=== PATIENT | male | born 1995 | race African-American/Black ===

== ENCOUNTER 2017-07-13 14:16 | Emergency (ER) | payer SELFPAY ==
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
[2017-07-13] MEDS ORDERED: ONDANSETRON 4 MG/2 ML VIAL IVP ONE (14:30)
[2017-07-13 14:40] LABS: PLATELET COUNT, AUTOMATED 156 K/uL (150-450)
[2017-07-13 15:00] LABS: INR 1.03
[2017-07-13] MEDS ORDERED: LORA-1456 PO (16:34)
[2017-07-13] MEDS ORDERED: LORazepam 1 MG TAB PO ONE (16:40)
[2017-07-13] MEDS ORDERED: ONDANSETRON 4 MG/2 ML VIAL ONE (16:48)
--- NOTE | 2017-07-13 17:08 | RADIOLOGY IMAGING REPORT ---
FACILITY: [facility] PATIENT NAME: Austin Hoyt : 1995 MR: [id number] V: [id number] EXAM DATE: ORDERING PHYSICIAN: FERCHO STORM TECHNOLOGIST: Location: [facility] [place] Patient: Austin Hoyt : 1995 Visit/Account:[id number] Date of Sevice: 07/13/2017 EXAMINATION: Head CT without intravenous contrast HISTORY: Seizure. COMPARISON: None. TECHNIQUE: Contiguous axial images were obtained from the skull base to the vertex without intraven ous contrast. Sagittal and coronal reformatted images are also submitted. One of the following dose optimization techniques was utilized in the performance of this exam: Autom ated exposure control; adjustment of the mA and/or kV according to the patient's size; or use of an i terative reconstruction technique. Specific details can be referenced in the facility's radiology C T exam operational policy. FINDINGS: Brain and intracranial structures: Ventricles, sulci, and cisterns are normal in size. Blake-white ma tter differentiation is maintained. No midline shift, acute hemorrhage, acute infarct, or mass. Calvarium / scalp: Right parietal scalp hematoma. No acute fracture. Skull base / visualized face: Negative. Visualized sinuses / orbits: Leftward deviation of the nasal septum. IMPRESSION: Right parietal scalp hematoma. No acute intracranial abnormality. Report Dictated By: Nile Wright MD at 07/13/2017 3:04 PM Report E-Signed By: Nile Wright MD at 07/13/2017 3:10 PM WSN:[id number]
--- NOTE | 2017-07-13 17:09 | RADIOLOGY IMAGING REPORT ---
FACILITY: [facility] [place] PATIENT NAME: Austin Hoyt : 1995 MR: [id number] V: [id number] EXAM DATE: ORDERING PHYSICIAN: FERCHO STORM TECHNOLOGIST: Location: Patient: Austin Hoyt : 1995 Visit/Account:[id number] Date of Sevice: 07/13/2017 EXAMINATION: CT Cervical spine without intravenous contrast HISTORY: Seizure. COMPARISON: None. TECHNIQUE: Axial images were obtained from the skull base through the upper thoracic spine without I V contrast administration. Coronal and sagittal reformatted images were obtained from the axial [facility] e data. One of the following dose optimization techniques was utilized in the performance of this exam: Autom ated exposure control; adjustment of the mA and/or kV according to the patient's size; or use of an i terative reconstruction technique. Specific details can be referenced in the facility's radiology C T exam operational policy. FINDINGS: Alignment: Slight kyphotic curvature of the cervical spine. Cranio-cervical junction: Negative. Vertebral bodies: Vertebral body heights are maintained. No acute fracture. Posterior elements: No acute fracture. Hardware: None. Disc Spaces: Intervertebral disc heights are maintained. Soft tissues: Negative. Visualized upper chest: Negative. IMPRESSION: No acute fracture of the cervical spine. Report Dictated By: Nile Wright MD at 07/13/2017 3:20 PM Report E-Signed By: Nile Wright MD at 07/13/2017 3:25 PM WSN:[id number]
[2017-07-13 17:31] VITALS: BP 150/97
== END 2017-07-13 17:34 | disposition home or self-care (01) ==
LOC: EDUNIT# 14:16 → ER 14:32
DX: R56.9 Unspecified convulsions (principal); F10.230 Alcohol dependence with withdrawal, uncomplicated; S00.93XA Contusion of unspecified part of head, initial encounter
CPT/HCPCS: 70450; 72125; 80305; 80320; 85025; 85610; 85730; 96374; 99284; J2405; 82040; 82247; 82310; 82374; 82435; 82565; 82947; 84075; 84132; 84155; 84295; 84450; 84460; 84520

== ENCOUNTER 2017-07-13 18:15 | Emergency (ER) | payer SELFPAY ==
[~2017-07-13 18:15] MED LIST changes: -MULT-1379 PO; -NICO-219 BC
[2017-07-13] MEDS ORDERED: DIAZEPAM 10 MG TAB PO ONE (18:25)
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
[2017-07-13] MEDS ORDERED: ONDANSETRON 4 MG/2 ML VIAL IVP ONE (18:35)
[2017-07-13] MEDS ORDERED: LORazepam 2 MG/ML VIAL IVP ONE (18:50)
[2017-07-13 19:30] VITALS: BP 132/77
== END 2017-07-13 20:40 ==
LOC: ER 18:44
DX: R56.9 Unspecified convulsions (principal); F10.230 Alcohol dependence with withdrawal, uncomplicated; R61 Generalized hyperhidrosis
CPT/HCPCS: 80329; 83735; 84443; 96374; 96375; 99285; J2060; J2405

== ENCOUNTER 2017-07-13 20:27 | Inpatient (IN) | payer SELFPAY ==
[~2017-07-13] VITALS: Ht 180.3 cm; Wt 68.0 kg
[2017-07-13] MEDS ORDERED: MAG HYD/AL HYD/SIMETH 30ML UDC PO PRN (20:35)
[2017-07-13 20:48] VITALS: BP 144/88
[2017-07-13] MEDS ORDERED: NICOTINE CARTRIDGE 1 EA PO PRN (20:50)
[2017-07-13] MEDS ORDERED: NICOTINE INH SYSTEM 10 MG/INH INH PRN (20:50)
[2017-07-13] MEDS: LORazepam 1 MG TAB PO PRN ×2 (20:52→22:45)
[2017-07-13 22:30] VITALS: BP 142/70
[2017-07-14] VITALS (10 sets, daily range): BP systolic 126–160; BP diastolic 70–102
[2017-07-14] MEDS: LORazepam 1 MG TAB PO PRN ×8 (00:18→11:47)
[2017-07-14] MEDS: MULTIVITAMINS TAB PO SCH (08:07)
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
[2017-07-14] MEDS: NICOTINE POLACRILEX 4 MG LOZG PO PRN ×2 (10:55→13:28)
[2017-07-14] MEDS: DIAZEPAM 10 MG TAB PO PRN ×11 (12:07→21:36)
[2017-07-14] MEDS: NICOTINE 21 MG/24 HR PATCH TD SCH (14:24)
[2017-07-14 15:40] LABS: PLATELET COUNT, AUTOMATED 131 K/uL (150-450)
--- NOTE | 2017-07-14 15:55 | EKG ---
FACILITY: PATIENT NAME: LILI HARRINGTON : [id number] MR: [id number] V: [id number] EXAM DATE: ORDERING PHYSICIAN: ALBERT DOCKERY TECHNOLOGIST: ESPERANZA Chiang Reason : Blood Pressure : / mmHG Vent. Rate : 083 BPM Atrial Rate : 083 BPM P-R Int : 144 ms QRS Dur : 088 ms QT Int : 356 ms P-R-T Axes : -03 064 040 degrees QTc Int : 418 ms Normal sinus rhythm Moderate voltage criteria for LVH, may be normal variant Borderline ECG No previous ECGs available Confirmed by NASRA KOCH ([id number]) on 07/15/2017 6:27:26 AM Referred By: Confirmed By:NASRA KOCH
--- NOTE | 2017-07-14 16:32 | BHS Progress Note ---
[facility] - Subjective Progress Notes Subjective Mr. Hoyt has shown worsening symptoms of withdrawal throughout the day. We stopped lorazepam and began using diazepam in late morning as he began showing more signs of delirium including confusion, hallucinations and persistently elevated pulse and BP. By mid-afternoon, he had received 60 mgs of diazepam with CIWA scores trending upward. At 1500, his pulse was still 108, BP 132/88, respirations 20 and temp 99.2. I ordered additional labs and noted his Na has come up from 135 to 138. K remains 3.4. Mg level is normal at 1.8. Nursing reports worsening confusion and CIWA scores that last up to 38 at 1500. I spoke to Dr. Dykes by phone who recommended continuing with aggressive diazepam increasing the frequency to 20 mgs every hour while continuing close observation as well as getting an EKG and CBC to monitor platelets, hydrating with electrolyte-rich fluids, elevating the head of the bed and monitoring a pulse ox if the patient does go to sleep. Reviewed labs: EKG shows no signs of preexcitation or conduction abnormalities. Platelets are somewhat lower at 131, however, I suspect this may be due to improved hydration as other functions are likewise changed from his ER visit such as albumen and total protein. [facility] Assessment and Plan [id number] Encounter Date: July 14, 2017 Mfvj-[id number] Encounter Time: 13:30 [facility] Plan: Admin/Titrate Meds Multpiple Antipsychotics Used: No Problems: (1) Alcohol withdrawal delirium, acute, hyperactive Status: Acute (2) Seizure due to alcohol withdrawal Status: Acute (3) Metabolic acidosis Status: Resolved (4) Alcohol dependence in controlled environment Condition Worsening delirium. Will increase diazepam and monitor closely. Will consider consulting medicine and/or possibly repeating brain CT if conditions worsen. See orders ALBERT DOCKERY DO July 14, 2017 16:15
[2017-07-14] MEDS: LOPERAMIDE HCL 2 MG CAP PO PRN ×2 (20:24→20:45)
[2017-07-14] MEDS ORDERED: DIAZEPAM 10 MG TAB PO ONE ×2 (20:30→20:55)
--- NOTE | 2017-07-14 22:39 | Hospitalist Consultation ---
History of Present Illness Requesting Physician Dr. Dykes Reason for Consult Alcohol withdrawal History of Present Illness This patient was admitted to [facility] [address] for alcohol withdrawal and seizures. He has not responded to oral diazepam and staff has found pills stashed in his room. History Problems: (1) Seizure due to alcohol withdrawal Status: Acute Home Meds Active Scripts Lorazepam (ATIVAN) 1 Mg Tablet, 1 MG PO Q4-6H Y for prn, #12 0 Refills Take as needed for withdrawals. Prov:FERCHO STORM Sean NEWS CLERK-BC 07/13/17 Allergies: Coded Allergies: No Known Drug Allergies (Unverified , 07/13/17) Hx Smoking: Yes Smoking Status: Heavy Tobacco Smoker Exposure to Second Hand Smoke?: No Hx Alcohol Use: Yes Alcohol Use: Currently Alcohol Used: Beer, Liquor Alcohol Withdrawl Symptoms: Tremors, Heart Racing, Sweating, Agitation, Headache Hx Substance Use Disorder: Yes Social Drug Use: Currently Social Drugs: Cocaine History of IV Drug Use: No Review of Systems All Systems Reviewed/Normal: Yes Exam Vital Signs Vital Signs Date Time Temp Pulse Resp B/P (MAP) Pulse Ox O2 Delivery O2 Flow Rate FiO2 07/14/17 19:20 97.8 86 20 142/92 (109) 94 Room Air 07/14/17 00:11 1.0 Neuro: No Gross deficits Cardiovascular: Regular Rate and Rhythm Respiratory: Clear to Auscultation Extremities: No Edema Integumentary: No Cyanosis Medical Decision Making Data Points Result Diagram: 07/14/17 1450 07/14/17 1450 Assessment and Plan Problems: (1) Alcohol withdrawal delirium, acute, hyperactive Status: Acute Assessment & Plan: We have converted him to IV lorazepam for his CIWA protocol. Thiamine has also been added. Venous Thromboembolism Antithrombotics Is Pt On Any Antithrombotics?: No NASRA KOCH DO July 14, 2017 22:39
[2017-07-14] MEDS: LORazepam 2 MG/ML VIAL IVP PRN (23:00)
[2017-07-15] MEDS: LORazepam 2 MG/ML VIAL IVP PRN ×11 (00:10→22:22)
[2017-07-15 00:13] VITALS: BP 138/84
[2017-07-15] MEDS: LOPERAMIDE HCL 2 MG CAP PO PRN (00:56)
[2017-07-15 04:00] VITALS: BP 128/90
[2017-07-15] MEDS: LORazepam 1 MG TAB PO PRN (04:05)
[2017-07-15 07:53] LABS: PLATELET COUNT, AUTOMATED 142 K/uL (150-450)
[2017-07-15] MEDS: THIAMINE HCL 100 MG TAB PO SCH (08:38)
[2017-07-15] MEDS: MULTIVITAMINS TAB PO SCH (08:38)
[2017-07-15] MEDS: NICOTINE 21 MG/24 HR PATCH TD SCH (08:38)
[2017-07-15] MEDS ORDERED: PATCH REMOVAL 1 EA TP SCH (09:00)
--- NOTE | 2017-07-15 13:24 | BHS Progress Note ---
[facility] - Subjective Progress Notes Subjective Patient interviewed in room, requiring 1:1 observation due to delirium related to alcohol withdrawal. Oriented to person only, disoriented to date, place and situation. Ambulates with fairly steady gait, fall precautions maintained Hospitalist consultation 07/15/15 due to poor response from oral Diazepam after total of 190 mg Diazepam and 19 mg Lorazepam po. One dose found smeared otherwise doses witnessed taking. CIWA scores remained >25 with increased agitation and confusion. IV placed with initiation of IV Lorazepam, CIWA scores lowered from 29 to 13 throughout night, patient slept intermittently with 1:1 observation by staff, HOB elevated and seizure precautions in place, continuous pulse oximetry. CIWA scores increased to 26 am 07/15/17, initially refusing IV Lorazepam although agreeable with after seizure risk reviewed. EKG 07/14/17 NSR, CT head without contrast 07/14/17 - right parietal scalp hematoma, no intracranial abnormality. 07/15/17 labs improving AST 156, ALT 117, Platelets 142, MCV 96.1 Will continue IV Lorazepam per protocol for alcohol withdrawal, close monitoring w/ 1:1 staff for safety, maintain seizure precautions. Suicidal Ideation: None Homicidal Ideation: None [facility] - Objective Physical Exam Vital Signs Vital Signs Date Time Temp Pulse Resp B/P (MAP) Pulse Ox O2 Delivery O2 Flow Rate FiO2 07/15/17 04:00 64 21 100 Room Air 07/15/17 04:00 97.9 128/90 (103) 07/14/17 00:11 1.0 Allergies Coded Allergies No Known Drug Allergies (Unverified07/13/17) Muscle Strength and Tone: Other (maintaining fall precautions, gait mostly steady 1:1 staff) Gait and Station: Other [facility] Medications Reviewed: Side Effects, Benefits of Medication, Risks Allergies Reviewed: Yes Mental Status Exam General Appearance: Well Groomed, Cooperative, Polite, Good Interaction, Psychomotor Agitation Speech: Spontaneous, Normal Rate, Other (Mostly clear but often soft and difficult for me to understand. Several times I had to ask the patient to repeat or clarify his answers.) Mood: Euthymic Affect: Calm, Flat Thought Process: Other (Largely coherent and goal-directed but with subtle deficits. Seems confused at times. Some answers to questions are hard to follow.) Thought Content: No Suicidal Ideation, No Homicidal Ideation, Auditory Halllucinations (responding to stimuli), Visual Hallucinations Sensorium: Other (Patient is observed by nursing to be responding to audio/ visual hallucinations) Cognition: Alert & Oriented-Person, No Alert & Oriented-Place, No Alert & Oriented-Time, No Tngad-Zqmzfsui-Khzuorkwp, Other (disoriented to date, place, situation) Memory: Immediate, Recent (Recalled meeting me about an hour earlier and the reasons for his admission), Remote (Able to recall significant past personal information) Intelligence: Average Insight Judgment: Fair (understands that he has a problem with alcohol and needs to "get back on track" and quit drinking) Result Diagram: 07/15/17 0746 07/15/17 0746 Lab Laboratory Tests Test 07/14/17 14:50 07/15/17 07:46 White Blood Count 8.0 k/uL 5.5 k/uL Red Blood Count 4.50 M/uL 4.63 M/uL Hemoglobin 14.5 g/dL 15.3 g/dL Hematocrit 42.9 % 44.5 % Mean Corpuscular Volume 95.3 fL 96.1 fL Mean Corpuscular Hemoglobin 32.3 pg 33.0 pg Mean Corpuscular Hemoglobin Concent 33.9 g/dL 34.3 g/dL Red Cell Distribution Width 13.4 % 13.7 % Platelet Count 131 K/uL 142 K/uL Mean Platelet Volume 9.2 fL 8.4 fL Neutrophils (%) (Auto) 74.5 % 65.9 % Lymphocytes (%) (Auto) 11.3 % 19.5 % Monocytes (%) (Auto) 13.7 % 13.0 % Eosinophils (%) (Auto) 0.2 % 1.0 % Basophils (%) (Auto) 0.3 % 0.6 % Nucleated RBC Relative Count (auto) 0.0 /100WBC 0.1 /100WBC Neutrophils # (Auto) 5.9 K/uL 3.6 K/uL Lymphocytes # (Auto) 0.9 K/uL 1.1 K/uL Monocytes # (Auto) 1.1 K/uL 0.7 K/uL Eosinophils # (Auto) 0.0 K/uL 0.1 K/uL Basophils # (Auto) 0.0 K/uL 0.0 K/uL Nucleated RBC Absolute Count (auto) 0.00 K/uL 0.00 K/uL Sodium Level 138 mmol/L 141 mmol/L Potassium Level 3.4 mmol/L 3.5 mmol/L Chloride Level 95 mmol/L 100 mmol/L Carbon Dioxide Level 27 mmol/L 25 mmol/L Blood Urea Nitrogen 8 mg/dl 4 mg/dl Creatinine 1.00 mg/dl 0.90 mg/dl Glomerular Filtration Rate Calc > 60.0 > 60.0 Random Glucose 104 mg/dl 101 mg/dl Calcium Level 10.4 mg/dl 9.9 mg/dl Magnesium Level 1.8 mg/dl Total Bilirubin 1.0 mg/dl 1.2 mg/dl Aspartate Amino Transf (AST/SGOT) 149 U/L 156 U/L Alanine Aminotransferase (ALT/SGPT) 109 U/L 117 U/L Alkaline Phosphatase 89 U/L 68 U/L Total Protein 8.1 gm/dl 7.7 gm/dl Albumin 4.8 g/dl 4.6 g/dl Current Medications Medications (Trade) Dose Ordered Sig/Cathy Route PRN Reason Start Time Stop Time Status Last Admin Dose Admin Lorazepam (Ativan(*) 1 Mg Tab (Or Equiv)) Ativan 1-2mg PO ever... Q1H PRN PO FOLLOW [facility]I/MARTHA PROTOCOL 07/13/17 20:35 07/14/17 12:02 DC 07/14/17 11:47 Al Hydrox/Mg Hydrox/Simethicone (Maalox(*) 30 ml Udcup (Or Equiv)) 30 ml Q4H PRN PO DYSPEPSIA 07/13/17 20:35 08/12/17 20:34 Multivitamins (Thera-M Enhanced Tab (Or Equiv)) 1 each QDAY PO 07/14/17 09:00 08/13/17 08:59 07/15/17 08:38 Miscellaneous Information (Nicotrol Cartridge) 1 each PRN PRN PO NICOTINE REPLACEMENT 07/13/17 20:50 07/14/17 10:36 DC Nicotine (Nicotrol Inhaler 10 Mg/Inh (Or Equiv)) 10 mg Q2H PRN INH NICOTINE REPLACEMENT 07/13/17 20:50 07/14/17 10:36 DC Nicotine Polacrilex (Commit 4 Mg Lozg (Or Equiv)) 4 mg Q1-2H PRN PO NICOTINE REPLACEMENT 07/14/17 10:35 07/14/17 13:56 DC 07/14/17 13:28 Diazepam (Valium(*) 10 Mg Tab (Or Equiv)) 20 mg PRN PRN PO FOLLOW [facility] PROTOCOL 07/14/17 12:00 07/14/17 22:27 DC 07/14/17 21:36 Nicotine (Nicoderm Cq(*) 21 Mg/24 Hr (Or Equiv)) 21 mg QDAY TD 07/14/17 13:55 08/13/17 13:54 07/15/17 08:38 Loperamide HCl (Imodium 2 Mg Cap (Or Equiv)) 2 mg PRN PRN PO DIARRHEA 07/14/17 20:15 08/13/17 20:14 07/15/17 00:56 Diazepam (Valium(*) 10 Mg Tab (Or Equiv)) 10 mg ONCE ONCE PO 07/14/17 20:30 07/14/17 22:27 DC 07/14/17 20:45 Diazepam (Valium(*) 10 Mg Tab (Or Equiv)) 10 mg ONCE ONCE PO 07/14/17 20:55 07/14/17 20:56 UNV Lorazepam (Ativan(*) 1 Mg Tab (Or Equiv)) 2 mg Q1H PRN PO FOLLOW [facility] PROTOCOL 07/14/17 22:25 07/28/17 22:24 07/15/17 04:05 Lorazepam (Ativan(*) 2 Mg/ ml Vial (Or Equiv)) 2 mg Q1H PRN IVP FOLLOW [facility] PROTOCOL 07/14/17 22:25 07/28/17 22:24 07/15/17 12:05 Thiamine HCl (Vitamin B-1(*) 100 Mg Tab (Or Equiv)) 100 mg QDAY PO 07/15/17 09:00 08/14/17 08:59 07/15/17 08:38 Additional Findings/Notes: Laboratory Tests Test 07/14/17 14:50 07/15/17 07:46 White Blood Count 8.0 k/uL 5.5 k/uL Red Blood Count 4.50 M/uL 4.63 M/uL Hemoglobin 14.5 g/dL 15.3 g/dL Hematocrit 42.9 % 44.5 % Mean Corpuscular Volume 95.3 fL 96.1 fL Mean Corpuscular Hemoglobin 32.3 pg 33.0 pg Mean Corpuscular Hemoglobin Concent 33.9 g/dL 34.3 g/dL Red Cell Distribution Width 13.4 % 13.7 % Platelet Count 131 K/uL 142 K/uL Mean Platelet Volume 9.2 fL 8.4 fL Neutrophils (%) (Auto) 74.5 % 65.9 % Lymphocytes (%) (Auto) 11.3 % 19.5 % Monocytes (%) (Auto) 13.7 % 13.0 % Eosinophils (%) (Auto) 0.2 % 1.0 % Basophils (%) (Auto) 0.3 % 0.6 % Nucleated RBC Relative Count (auto) 0.0 /100WBC 0.1 /100WBC Neutrophils # (Auto) 5.9 K/uL 3.6 K/uL Lymphocytes # (Auto) 0.9 K/uL 1.1 K/uL Monocytes # (Auto) 1.1 K/uL 0.7 K/uL Eosinophils # (Auto) 0.0 K/uL 0.1 K/uL Basophils # (Auto) 0.0 K/uL 0.0 K/uL Nucleated RBC Absolute Count (auto) 0.00 K/uL 0.00 K/uL Sodium Level 138 mmol/L 141 mmol/L Potassium Level 3.4 mmol/L 3.5 mmol/L Chloride Level 95 mmol/L 100 mmol/L Carbon Dioxide Level 27 mmol/L 25 mmol/L Blood Urea Nitrogen 8 mg/dl 4 mg/dl Creatinine 1.00 mg/dl 0.90 mg/dl Glomerular Filtration Rate Calc > 60.0 > 60.0 Random Glucose 104 mg/dl 101 mg/dl Calcium Level 10.4 mg/dl 9.9 mg/dl Magnesium Level 1.8 mg/dl Total Bilirubin 1.0 mg/dl 1.2 mg/dl Aspartate Amino Transf (AST/SGOT) 149 U/L 156 U/L Alanine Aminotransferase (ALT/SGPT) 109 U/L 117 U/L Alkaline Phosphatase 89 U/L 68 U/L Total Protein 8.1 gm/dl 7.7 gm/dl Albumin 4.8 g/dl 4.6 g/dl Current Medications Medications (Trade) Dose Ordered Sig/Cathy Route PRN Reason Start Time Stop Time Status Last Admin Dose Admin Lorazepam (Ativan(*) 1 Mg Tab (Or Equiv)) Ativan 1-2mg PO ever... Q1H PRN PO FOLLOW [facility] PROTOCOL 07/13/17 20:35 07/14/17 12:02 DC 07/14/17 11:47 Al Hydrox/Mg Hydrox/Simethicone (Maalox(*) 30 ml Udcup (Or Equiv)) 30 ml Q4H PRN PO DYSPEPSIA 07/13/17 20:35 08/12/17 20:34 Multivitamins (Thera-M Enhanced Tab (Or Equiv)) 1 each QDAY PO 07/14/17 09:00 08/13/17 08:59 07/15/17 08:38 Miscellaneous Information (Nicotrol Cartridge) 1 each PRN PRN PO NICOTINE REPLACEMENT 07/13/17 20:50 07/14/17 10:36 DC Nicotine (Nicotrol Inhaler 10 Mg/Inh (Or Equiv)) 10 mg Q2H PRN INH NICOTINE REPLACEMENT 07/13/17 20:50 07/14/17 10:36 DC Nicotine Polacrilex (Commit 4 Mg Lozg (Or Equiv)) 4 mg Q1-2H PRN PO NICOTINE REPLACEMENT 07/14/17 10:35 07/14/17 13:56 DC 07/14/17 13:28 Diazepam (Valium(*) 10 Mg Tab (Or Equiv)) 20 mg PRN PRN PO FOLLOW CIWA PROTOCOL 07/14/17 12:00 07/14/17 22:27 DC 07/14/17 21:36 Nicotine (Nicoderm Cq(*) 21 Mg/24 Hr (Or Equiv)) 21 mg QDAY TD 07/14/17 13:55 08/13/17 13:54 07/15/17 08:38 Loperamide HCl (Imodium 2 Mg Cap (Or Equiv)) 2 mg PRN PRN PO DIARRHEA 07/14/17 20:15 08/13/17 20:14 07/15/17 00:56 Diazepam (Valium(*) 10 Mg Tab (Or Equiv)) 10 mg ONCE ONCE PO 07/14/17 20:30 07/14/17 22:27 DC 07/14/17 20:45 Diazepam (Valium(*) 10 Mg Tab (Or Equiv)) 10 mg ONCE ONCE PO 07/14/17 20:55 07/14/17 20:56 UNV Lorazepam (Ativan(*) 1 Mg Tab (Or Equiv)) 2 mg Q1H PRN PO FOLLOW [facility] PROTOCOL 07/14/17 22:25 07/28/17 22:24 07/15/17 04:05 Lorazepam (Ativan(*) 2 Mg/ ml Vial (Or Equiv)) 2 mg Q1H PRN IVP FOLLOW [facility] PROTOCOL 07/14/17 22:25 07/28/17 22:24 07/15/17 12:05 Thiamine HCl (Vitamin B-1(*) 100 Mg Tab (Or Equiv)) 100 mg QDAY PO 07/15/17 09:00 08/14/17 08:59 07/15/17 08:38 [facility] Assessment and Plan Lfej-[id number] Encounter Date: July 15, 2017 [id number] Encounter Time: 08:45 [facility] Plan: Admit to Unit, Necessary Precautions, Individual/Group Therapy, Admin /Titrate Meds, Educate Patient Multpiple Antipsychotics Used: No Problems: (1) Alcohol dependence in controlled environment Status: Chronic (2) Alcohol withdrawal delirium, acute, hyperactive Status: Acute (3) Seizure due to alcohol withdrawal Status: Resolved Condition Continue IV Lorazepam per protocol Monitor VS, labs, close observation with 1:1 staff LAKSHMI MACK NP July 15, 2017 13:24
[2017-07-15 16:10] VITALS: BP 130/96
[2017-07-15] MEDS ORDERED: LORazepam 1 MG TAB PO ONE (17:10)
[2017-07-15] MEDS ORDERED: clonazePAM 0.5 MG ODT TABDP PO ONE ×2 (20:00→22:00)
[2017-07-15 20:05] VITALS: BP 130/82
[2017-07-15] MEDS ORDERED: NICOTINE CARTRIDGE 1 EA PO ONE (20:07)
[2017-07-15] MEDS ORDERED: NICOTINE INH SYSTEM 10 MG/INH INH ONE (20:07)
[2017-07-15 21:08] VITALS: BP 120/78
[2017-07-15] MEDS ORDERED: clonazePAM 0.5 MG ODT TABDP PO SCH (21:25)
[2017-07-15 23:58] VITALS: BP 128/88
[2017-07-16] MEDS ORDERED: OLANZapine ZYDIS ODT 5MG TABDP ONE ×2 (00:04→04:32)
[2017-07-16] MEDS ORDERED: OLANZapine ZYDIS ODT 5MG TABDP PO ONE (00:10)
[2017-07-16 02:15] VITALS: BP 134/96
[2017-07-16] MEDS: LORazepam 2 MG/ML VIAL IVP PRN (02:23)
[2017-07-16 03:48] VITALS: BP 134/88
[2017-07-16] MEDS ORDERED: clonazePAM 0.5 MG ODT TABDP PO ONE ×3 (04:10→15:15)
[2017-07-16] MEDS ORDERED: diphenhydrAMINE 25 MG CAP ONE (04:32)
[2017-07-16] MEDS ORDERED: NICOTINE INH SYSTEM 10 MG/INH INH ONE (04:49)
[2017-07-16] MEDS ORDERED: NICOTINE CARTRIDGE 1 EA PO ONE (04:52)
[2017-07-16] MEDS: LORazepam 1 MG TAB PO PRN (06:39)
[2017-07-16] MEDS ORDERED: DIVALPROEX SOD DR 500 MG TAB PO ONE ×2 (06:55→11:10)
[2017-07-16] MEDS ORDERED: DIAZEPAM 10 MG TAB PO ONE (06:55)
[2017-07-16] MEDS: MULTIVITAMINS TAB PO SCH ×2 (09:00→11:18)
[2017-07-16] MEDS: NICOTINE 21 MG/24 HR PATCH TD SCH ×2 (09:00→11:19)
[2017-07-16] MEDS: THIAMINE HCL 100 MG TAB PO SCH ×2 (09:00→11:19)
[2017-07-16 11:05] VITALS: BP 126/92
[2017-07-16] MEDS ORDERED: DIAZEPAM 10 MG TAB PO PRN (11:15)
[2017-07-16] MEDS: DIAZEPAM 10 MG TAB PO PRN ×7 (11:23→17:58)
[2017-07-16 11:27] LABS: PLATELET COUNT, AUTOMATED 176 K/uL (150-450)
[2017-07-16] MEDS ORDERED: DIVALPROEX SOD ER 250 MG TABSR PO ONE (12:20)
--- NOTE | 2017-07-16 12:43 | BHS Progress Note ---
[facility] - Subjective Progress Notes Subjective Patient interviewed in room, requiring 1:1 observation due to delirium related to alcohol withdrawal. No seizures since admission. Remains delirious, oriented to person only, disoriented to date, place and situation. Ambulates with fairly steady gait, fall precautions maintained Code yellow initiated during night, poor response from IV Lorazepam, IV pulled out. 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 Dykes am of 07/16/17, will discontinue IV Lorazepam due to poor response, initiate Depakote and Diazepam. Depakote 500 mg po administered 0700 with Diazepam 20 mg, patient slept 3 1/2 hours, awakened, ongoing confusion, pacing, visual hallucinations, Depakote 500 mg po repeated and Diazepam loading dose initiated for CIWA = 33. Labs 07/16/17: Platelets 176, MCV 96.7, ALT 107, ALT 95, Vital signs remain stable Will draw repeat Magnesium level, repeat EKG HOB elevated and seizure precautions in place, continuous pulse oximetry, close monitoring with 1:1 staff. EKG 07/14/17 NSR, CT head without contrast 07/14/17 - right parietal scalp hematoma, no intracranial abnormality. Suicidal Ideation: None Homicidal Ideation: None [facility] - Objective Physical Exam Vital Signs Vital Signs Date Time Temp Pulse Resp B/P (MAP) Pulse Ox O2 Delivery O2 Flow Rate FiO2 07/16/17 11:05 98.1 74 26 126/92 (103) 94 Room Air 07/14/17 00:11 1.0 Allergies Coded Allergies No Known Drug Allergies (Unverified07/13/17) Muscle Strength and Tone: Other (maintaining fall precautions, gait mostly steady 1:1 staff) Gait and Station: Other (Requiring 1:1 observation due to delirium) [facility] Medications Reviewed: Side Effects, Benefits of Medication, Risks Allergies Reviewed: Yes Mental Status Exam General Appearance: Well Groomed, No Cooperative, No Polite, No Good Interaction, Psychomotor Agitation, Other Speech: Spontaneous, Normal Rate, Other (Remains disoriented, difficult to obtain accurate assessment due to confusion) Mood: No Dysthmic/Depressed, No Euthymic, Other (Anxious, pacing) Affect: No Calm, No Flat, Anxious, Agitated Thought Process: Other (Unable to accurately assess due to delirium) Thought Content: No Suicidal Ideation, No Homicidal Ideation, Auditory Halllucinations (responding to stimuli), Visual Hallucinations Sensorium: Other (Patient is observed by nursing to be responding to audio/ visual hallucinations) Cognition: Alert & Oriented-Person, No Alert & Oriented-Place, No Alert & Oriented-Time, No Mwywo-Cyctgpwg-Ecetpekyy, Other (disoriented to date, place, situation) Memory: Immediate, No Recent (Recalled meeting me about an hour earlier and the reasons for his admission), No Remote (Able to recall significant past personal information), Other (Difficult to accurately assess due to confused states) Intelligence: Average Insight Judgment: Poor, No Fair Result Diagram: 07/16/17 1121 07/16/17 1121 Lab Pacing in room, visual hallucinations, confused Microbiology Allergies Coded Allergies No Known Drug Allergies (Unverified07/13/17) Imaging Vital Signs Date Time Temp Pulse Resp B/P (MAP) Pulse Ox O2 Delivery O2 Flow Rate FiO2 07/16/17 11:05 98.1 74 26 126/92 (103) 94 Room Air 07/14/17 00:11 1.0 Additional Findings/Notes: Laboratory Tests Test 07/16/17 11:21 White Blood Count 7.1 k/uL Red Blood Count 4.56 M/uL Hemoglobin 14.9 g/dL Hematocrit 44.1 % Mean Corpuscular Volume 96.7 fL Mean Corpuscular Hemoglobin 32.7 pg Mean Corpuscular Hemoglobin Concent 33.8 g/dL Red Cell Distribution Width 13.9 % Platelet Count 176 K/uL Mean Platelet Volume 8.6 fL Neutrophils (%) (Auto) 64.1 % Lymphocytes (%) (Auto) 20.8 % Monocytes (%) (Auto) 13.7 % Eosinophils (%) (Auto) 0.9 % Basophils (%) (Auto) 0.5 % Nucleated RBC Relative Count (auto) 0.0 /100WBC Neutrophils # (Auto) 4.6 K/uL Lymphocytes # (Auto) 1.5 K/uL Monocytes # (Auto) 1.0 K/uL Eosinophils # (Auto) 0.1 K/uL Basophils # (Auto) 0.0 K/uL Nucleated RBC Absolute Count (auto) 0.00 K/uL Sodium Level 146 mmol/L Potassium Level 3.7 mmol/L Chloride Level 103 mmol/L Carbon Dioxide Level 26 mmol/L Blood Urea Nitrogen 5 mg/dl Creatinine 1.00 mg/dl Glomerular Filtration Rate Calc > 60.0 Random Glucose 133 mg/dl Calcium Level 10.2 mg/dl Total Bilirubin 1.0 mg/dl Aspartate Amino Transf (AST/SGOT) 107 U/L Alanine Aminotransferase (ALT/SGPT) 95 U/L Alkaline Phosphatase 64 U/L Total Protein 8.3 gm/dl Albumin 4.8 g/dl Current Medications Medications (Trade) Dose Ordered Sig/Cathy Route PRN Reason Start Time Stop Time Status Last Admin Dose Admin Lorazepam (Ativan(*) 1 Mg Tab (Or Equiv)) Ativan 1-2mg PO ever... Q1H PRN PO FOLLOW [facility] PROTOCOL 07/13/17 20:35 07/14/17 12:02 DC 07/14/17 11:47 Al Hydrox/Mg Hydrox/Simethicone (Maalox(*) 30 ml Udcup (Or Equiv)) 30 ml Q4H PRN PO DYSPEPSIA 07/13/17 20:35 08/12/17 20:34 Multivitamins (Thera-M Enhanced Tab (Or Equiv)) 1 each QDAY PO 07/14/17 09:00 08/13/17 08:59 07/16/17 11:18 Miscellaneous Information (Nicotrol Cartridge) 1 each PRN PRN PO NICOTINE REPLACEMENT 07/13/17 20:50 07/14/17 10:36 DC Nicotine (Nicotrol Inhaler 10 Mg/Inh (Or Equiv)) 10 mg Q2H PRN INH NICOTINE REPLACEMENT 07/13/17 20:50 07/14/17 10:36 DC Nicotine Polacrilex (Commit 4 Mg Lozg (Or Equiv)) 4 mg Q1-2H PRN PO NICOTINE REPLACEMENT 07/14/17 10:35 07/14/17 13:56 DC 07/14/17 13:28 Diazepam (Valium(*) 10 Mg Tab (Or Equiv)) 20 mg PRN PRN PO FOLLOW [facility] PROTOCOL 07/14/17 12:00 07/14/17 22:27 DC 07/14/17 21:36 Nicotine (Nicoderm Cq(*) 21 Mg/24 Hr (Or Equiv)) 21 mg QDAY TD 07/14/17 13:55 08/13/17 13:54 07/16/17 11:19 Loperamide HCl (Imodium 2 Mg Cap (Or Equiv)) 2 mg PRN PRN PO DIARRHEA 07/14/17 20:15 08/13/17 20:14 07/15/17 00:56 Diazepam (Valium(*) 10 Mg Tab (Or Equiv)) 10 mg ONCE ONCE PO 07/14/17 20:30 07/14/17 22:27 DC 07/14/17 20:45 Diazepam (Valium(*) 10 Mg Tab (Or Equiv)) 10 mg ONCE ONCE PO 07/14/17 20:55 07/14/17 20:56 UNV Lorazepam (Ativan(*) 1 Mg Tab (Or Equiv)) 2 mg Q1H PRN PO FOLLOW [facility] PROTOCOL 07/14/17 22:25 07/28/17 22:24 07/16/17 06:39 Lorazepam (Ativan(*) 2 Mg/ ml Vial (Or Equiv)) 2 mg Q1H PRN IVP FOLLOW [facility] PROTOCOL 07/14/17 22:25 07/16/17 10:19 DC 07/16/17 02:23 Thiamine HCl (Vitamin B-1(*) 100 Mg Tab (Or Equiv)) 100 mg QDAY PO 07/15/17 09:00 08/14/17 08:59 07/16/17 11:19 Lorazepam (Ativan(*) 1 Mg Tab (Or Equiv)) 2 mg ONCE ONCE PO 07/15/17 17:10 07/16/17 11:16 DC 07/15/17 17:18 Clonazepam (Klonopin Wafers 0.5 MG ODT TABDP) 2 mg ONCE ONCE PO 07/15/17 20:00 07/15/17 20:01 DC 07/15/17 19:59 Nicotine (Nicotrol Inhaler 10 Mg/Inh (Or Equiv)) 10 mg STK-MED ONCE INH 07/15/17 20:07 07/15/17 20:15 DC 07/15/17 20:07 Miscellaneous Information (Nicotrol Cartridge) 1 each STK-MED ONCE PO 07/15/17 20:07 07/15/17 20:15 DC 07/15/17 20:07 Clonazepam (Klonopin Wafers 0.5 MG ODT TABDP) 2 mg ONCE PO 07/15/17 21:25 07/15/17 21:58 DC 07/15/17 21:31 Clonazepam (Klonopin Wafers 0.5 MG ODT TABDP) 2 mg ONCE ONCE PO 07/15/17 22:00 07/15/17 22:01 DC Olanzapine (zyPREXA ZYDIS ODT(*) 5 MG TABDP (OR EQUIV)) 5 mg ONCE ONCE PO 07/16/17 00:10 07/16/17 00:12 DC 07/16/17 00:14 Olanzapine (zyPREXA ZYDIS ODT(*) 5 MG TABDP (OR EQUIV)) 5 mg STK-MED ONCE .ROUTE 07/16/17 00:04 07/16/17 00:12 DC Clonazepam (Klonopin Wafers 0.5 MG ODT TABDP) 2 mg ONCE ONCE PO 07/16/17 04:10 07/16/17 04:17 DC 07/16/17 04:10 Diphenhydramine HCl (Benadryl(*) 25 Mg Cap (Or Equiv)) 50 mg STK-MED ONCE .ROUTE 07/16/17 04:32 07/16/17 04:40 DC 07/16/17 04:32 Olanzapine (zyPREXA ZYDIS ODT(*) 5 MG TABDP (OR EQUIV)) 10 mg STK-MED ONCE .ROUTE 07/16/17 04:32 07/16/17 04:40 DC 07/16/17 04:32 Nicotine (Nicotrol Inhaler 10 Mg/Inh (Or Equiv)) 10 mg STK-MED ONCE INH 07/16/17 04:49 07/16/17 04:58 DC 07/16/17 04:49 Miscellaneous Information (Nicotrol Cartridge) 1 each STK-MED ONCE PO 07/16/17 04:52 07/16/17 04:58 DC 07/16/17 04:52 Divalproex Sodium (Depakote Dr 500 Mg Tab (Or Equiv)) 500 mg ONCE ONCE PO 07/16/17 06:55 07/16/17 06:59 DC 07/16/17 06:55 Diazepam (Valium(*) 10 Mg Tab (Or Equiv)) 20 mg ONCE ONCE PO 07/16/17 06:55 07/16/17 06:59 DC 07/16/17 06:55 Divalproex Sodium (Depakote Dr 500 Mg Tab (Or Equiv)) 500 mg ONCE ONCE PO 07/16/17 11:10 07/16/17 11:14 DC 07/16/17 11:18 Diazepam (Valium(*) 10 Mg Tab (Or Equiv)) 20 mg Q1H PRN PO FOLLOW [facility] PROTOCOL 07/16/17 11:10 07/30/17 11:09 07/16/17 11:23 Diazepam (Valium(*) 10 Mg Tab (Or Equiv)) 20 mg PRN PRN PO FOLLOW [facility] PROTOCOL 07/16/17 11:15 07/30/17 11:14 UNV Divalproex Sodium (Depakote Er 250 Mg Tabsr (Or Equiv)) 250 mg ONCE ONCE PO 07/16/17 12:20 07/16/17 12:27 DC [facility] Assessment and Plan [id number] Encounter Date: July 16, 2017 [id number] Encounter Time: 08:30 [facility] Plan: Admit to Unit, Necessary Precautions, Individual/Group Therapy, Admin /Titrate Meds, Educate Patient Multpiple Antipsychotics Used: No Problems: (1) Alcohol dependence in controlled environment Status: Chronic (2) Alcohol withdrawal delirium, acute, hyperactive Status: Acute (3) Seizure due to alcohol withdrawal Status: Resolved Condition Initiate Depakote, Diazepam for withdrawal, sleep, IV Lorazepam discontinued due to poor response Monitor labs and VA closely, CBC, Chem Comp, Depakote ordered 07/17/17 am [facility] protocol Treatment team 07/17/17 Maintain HOB elevated, 1:1 staff for safety, fall and seizure precautions LAKSHMI MACK NP July 16, 2017 12:43
[2017-07-16 14:20] VITALS: BP 117/78
--- NOTE | 2017-07-16 14:51 | EKG ---
FACILITY: [facility] PATIENT NAME: LILI HARRINGTON : [id number] MR: [id number] V: [id number] EXAM DATE: ORDERING PHYSICIAN: LAKSHMI MACK TECHNOLOGIST: Test Reason : Blood Pressure : / mmHG Vent. Rate : 074 BPM Atrial Rate : 074 BPM P-R Int : 148 ms QRS Dur : 084 ms QT Int : 382 ms P-R-T Axes : -13 071 019 degrees QTc Int : 424 ms Sinus rhythm Poor R wave progression anteriorly Nonspecific ST findings Confirmed by RANDI PALACIOS ([id number] on 07/17/2017 11:21:52 AM Referred By: Confirmed By:RANDI PALACIOS
[2017-07-16 17:29] VITALS: BP 120/78
[2017-07-16] MEDS ORDERED: diphenhydrAMINE 25 MG CAP PO ONE ×2 (17:50→19:00)
[2017-07-16] MEDS ORDERED: chlorproMAZINE 25 MG TAB PO ONE ×2 (17:50→19:00)
[2017-07-17 02:20] VITALS: BP 121/83
[2017-07-17 06:22] LABS: PLATELET COUNT, AUTOMATED 153 K/uL (150-450)
[2017-07-17] MEDS: THIAMINE HCL 100 MG TAB PO SCH (08:40)
[2017-07-17] MEDS: MULTIVITAMINS TAB PO SCH (08:40)
[2017-07-17] MEDS: NICOTINE 21 MG/24 HR PATCH TD SCH (08:43)
[2017-07-17] MEDS ORDERED: DIVALPROEX SOD ER 500 MG TABSR PO SCH (09:00)
--- NOTE | 2017-07-17 10:42 | BHS Progress Note ---
[facility] - Subjective Progress Notes Subjective Patient noted to have slept well last night, and was fairly quick to arise this AM, to speak with this provider. Patient in obvious resolving delerium today. Notably patient's appetite has returned today. Patient and his mother on the phone during treatment team meeting confirm patient's chronic long standing alcohol use disorder. Patient adamantly denies any use of benzodiazepines prior to admission, and denies any other substance use with the exception of "weed". Patient and Mother deny any history of bipolar illness, or other psychiatric concerns. Patient remains voluntarily on the unit, and is in need of further treatment regarding resolution of delirium, and continued monitoring of alcohol withdrawal. Patient has required large amounts of medications, to cover withdrawal, and resolve delirium. Today will stop Depakote, and Ativan, will continue valium per [facility] protocol. Suicidal Ideation: None Homicidal Ideation: None [facility] - Objective Physical Exam Vital Signs Vital Signs Date Time Temp Pulse Resp B/P (MAP) Pulse Ox O2 Delivery O2 Flow Rate FiO2 07/17/17 02:20 97.6 112 15 121/83 (96) 96 Room Air 07/14/17 00:11 1.0 Muscle Strength and Tone: Other (maintaining fall precautions, gait mostly steady 1:1 staff) Gait and Station: Other (Requiring 1:1 observation due to delirium) [facility] Medications Reviewed: Side Effects, Benefits of Medication, Risks Allergies Reviewed: Yes Mental Status Exam General Appearance: Casual, Well Groomed, Good Eye Contact (improved), Cooperative, Polite, Good Interaction, Tearful, No Psychomotor Agitation, Psychomotor Retardation, Bizarre Mannerisms, Other Speech: Spontaneous, Normal Rate (slowed), Normal Rhythm, No Normal Volume, Normal Tone, Slurred, Other (Remains disoriented, difficult to obtain accurate assessment due to confusion) Mood: Dysthmic/Depressed, Euthymic, Other Affect: Neutral, Withdrawn, Tearful, No Anxious, No Agitated Thought Process: Goal Directed, No Loose Associations, No Flight of Ideas, Other (Unable to accurately assess due to delirium) Thought Content: No Suicidal Ideation, No Homicidal Ideation, No Auditory Halllucinations, No Visual Hallucinations, No Thought Broadcasting, No Ideas of Reference, No Obsessions, No Compulsions Sensorium: Other (much improved ) Cognition: Alert & Oriented-Person, Alert & Oriented-Place, Alert & Oriented- Time, No Ppxpc-Ealgvgxg-Sprgazblh Memory: Immediate, No Recent (Recalled meeting me about an hour earlier and the reasons for his admission), No Remote (Able to recall significant past personal information), Other (Difficult to accurately assess due to confused states) Intelligence: Average (historically ) Insight Judgment: Poor, No Fair Result Diagram: 07/17/17 0607 07/17/1707 [facility] Assessment and Plan [id number] Encounter Date: July 17, 2017 Effv-av-Kzdy Encounter Time: 10:39 [facility] Plan: Admit to Unit, Necessary Precautions, Individual/Group Therapy, Admin /Titrate Meds, Educate Patient Multpiple Antipsychotics Used: No Problems: (1) Alcohol withdrawal delirium, acute, hyperactive Status: Acute (2) Seizure due to alcohol withdrawal Status: Resolved (3) Alcohol dependence in controlled environment Status: Chronic (4) Cannabis use disorder, severe, in controlled environment Condition 1. continue treatment. 2. stop depakote. 3. stop ativan. 4. continue CIWA with valium. ADILENE NARAYANAN MD July 17, 2017 10:41
[2017-07-17 12:30] VITALS: BP 129/86
[2017-07-17 16:24] VITALS: BP 112/70
[2017-07-17] MEDS: DIAZEPAM 10 MG TAB PO PRN ×3 (17:18→22:01)
[2017-07-17 19:30] VITALS: BP 119/89
[2017-07-17] MEDS ORDERED: DIVALPROEX SOD ER 250 MG TABSR PO SCH (21:00)
[2017-07-17] MEDS ORDERED: diphenhydrAMINE 25 MG CAP PO ONE (21:50)
[2017-07-17] MEDS ORDERED: chlorproMAZINE 25 MG TAB PO ONE (21:50)
[2017-07-18 06:00] VITALS: BP 108/71
[2017-07-18 06:22] LABS: PLATELET COUNT, AUTOMATED 172 K/uL (150-450)
[2017-07-18] MEDS: THIAMINE HCL 100 MG TAB PO SCH (08:06)
[2017-07-18] MEDS: MULTIVITAMINS TAB PO SCH (08:06)
[2017-07-18] MEDS: NICOTINE 21 MG/24 HR PATCH TD SCH (08:07)
[2017-07-18 10:10] VITALS: BP 122/76
--- NOTE | 2017-07-18 11:17 | BHS Progress Note ---
[facility] - Subjective Progress Notes Subjective Patient continues to recover from delirium, continues to voice desire to abstain from alcohol upon discharge. Alcohol withdrawal likely nearing completion, will continue to monitor closely. Patient was able to rest well last PM with valium alone, with no additional anti-psychotic. Will continue to monitor closely and solidify plans to ensure abstinence upon discharge. appetite good, orientation improving. Suicidal Ideation: None Homicidal Ideation: None S - Objective Physical Exam Vital Signs Vital Signs Date Time Temp Pulse Resp B/P (MAP) Pulse Ox O2 Delivery O2 Flow Rate FiO2 07/18/17 10:10 98.8 96 16 122/76 (91) 96 Room Air Hematology Test 07/14/17 00:00 07/17/17 06:07 07/18/17 06:02 Urine Color Straw Urine Clarity Clear Urine pH 6.0 pH (4.8-9.5) Urine Specific [place] 1.002 Urine Protein Negative mg/dL (NEGATIVE) Urine Glucose (UA) Negative mg/dL (NEGATIVE) Urine Ketones Trace mg/dL (NEGATIVE) Urine Blood Small (NEGATIVE) Urine Nitrite Negative (NEGATIVE) Urine Bilirubin Negative (NEGATIVE) Urine Urobilinogen Negative mg/dL (0.2-1.9) Urine Leukocyte Esterase Negative (NEGATIVE) Urine RBC <1 /HPF (0-2/HPF) Urine WBC <1 /HPF (0-5/HPF) Urine Squamous Epithelial Cells None /LPF (</=FEW) Urine Bacteria Negative /HPF (NONE-FEW) Urine Mucus None /HPF (NONE-FEW) Valproic Acid (Depakene) Level 29.3 ug/ml Red Blood Count 4.49 M/uL (4.00-5.60) Mean Corpuscular Volume 96.9 fL (80.0-96.0) Mean Corpuscular Hemoglobin 32.8 pg (26.0-33.0) Mean Corpuscular Hemoglobin Concent 33.8 g/dL (32.0-36.0) Red Cell Distribution Width 13.6 % (11.5-14.5) Mean Platelet Volume 7.7 fL (7.2-11.1) Neutrophils (%) (Auto) 56.8 % (39.4-72.5) Lymphocytes (%) (Auto) 23.9 % (17.6-49.6) Monocytes (%) (Auto) 17.5 % (4.1-12.4) Eosinophils (%) (Auto) 1.4 % (0.4-6.7) Basophils (%) (Auto) 0.4 % (0.3-1.4) Nucleated RBC Relative Count (auto) 0.0 /100WBC Neutrophils # (Auto) 3.0 K/uL (2.0-7.4) Lymphocytes # (Auto) 1.3 K/uL (1.3-3.6) Monocytes # (Auto) 0.9 K/uL (0.3-1.0) Eosinophils # (Auto) 0.1 K/uL (0.0-0.5) Basophils # (Auto) 0.0 K/uL (0.0-0.1) Nucleated RBC Absolute Count (auto) 0.00 K/uL Peripheral Blood Smear Yes Y/N Sodium Level 141 mmol/L (137-145) Potassium Level 4.5 mmol/L (3.5-5.0) Chloride Level 101 mmol/L (98-107) Carbon Dioxide Level 29 mmol/L (22-30) Blood Urea Nitrogen 11 mg/dl (9-21) Creatinine 1.00 mg/dl (0.66-1.25) Glomerular Filtration Rate Calc > 60.0 Random Glucose 92 mg/dl (75-110) Calcium Level 10.0 mg/dl (8.4-10.2) Magnesium Level 1.7 mg/dl (1.7-2.2) Total Bilirubin 0.4 mg/dl (0.2-1.3) Aspartate Amino Transf (AST/SGOT) 56 U/L (0-35) Alanine Aminotransferase (ALT/SGPT) 73 U/L (0-56) Alkaline Phosphatase 66 U/L (0-126) Total Protein 7.2 gm/dl (6.3-8.2) Albumin 4.2 g/dl (3.5-5.0) Chemistry Test 07/14/17 00:00 07/17/17 06:07 07/18/17 06:02 Urine Color Straw Urine Clarity Clear Urine pH 6.0 pH (4.8-9.5) Urine Specific [place] 1.002 Urine Protein Negative mg/dL (NEGATIVE) Urine Glucose (UA) Negative mg/dL (NEGATIVE) Urine Ketones Trace mg/dL (NEGATIVE) Urine Blood Small (NEGATIVE) Urine Nitrite Negative (NEGATIVE) Urine Bilirubin Negative (NEGATIVE) Urine Urobilinogen Negative mg/dL (0.2-1.9) Urine Leukocyte Esterase Negative (NEGATIVE) Urine RBC <1 /HPF (0-2/HPF) Urine WBC <1 /HPF (0-5/HPF) Urine Squamous Epithelial Cells None /LPF (</=FEW) Urine Bacteria Negative /HPF (NONE-FEW) Urine Mucus None /HPF (NONE-FEW) Valproic Acid (Depakene) Level 29.3 ug/ml White Blood Count 5.4 k/uL (4.5-11.0) Red Blood Count 4.49 M/uL (4.00-5.60) Hemoglobin 14.7 g/dL (14.0-18.0) Hematocrit 43.5 % (42.0-52.0) Mean Corpuscular Volume 96.9 fL (80.0-96.0) Mean Corpuscular Hemoglobin 32.8 pg (26.0-33.0) Mean Corpuscular Hemoglobin Concent 33.8 g/dL (32.0-36.0) Red Cell Distribution Width 13.6 % (11.5-14.5) Platelet Count 172 K/uL (150-450) Mean Platelet Volume 7.7 fL (7.2-11.1) Neutrophils (%) (Auto) 56.8 % (39.4-72.5) Lymphocytes (%) (Auto) 23.9 % (17.6-49.6) Monocytes (%) (Auto) 17.5 % (4.1-12.4) Eosinophils (%) (Auto) 1.4 % (0.4-6.7) Basophils (%) (Auto) 0.4 % (0.3-1.4) Nucleated RBC Relative Count (auto) 0.0 /100WBC Neutrophils # (Auto) 3.0 K/uL (2.0-7.4) Lymphocytes # (Auto) 1.3 K/uL (1.3-3.6) Monocytes # (Auto) 0.9 K/uL (0.3-1.0) Eosinophils # (Auto) 0.1 K/uL (0.0-0.5) Basophils # (Auto) 0.0 K/uL (0.0-0.1) Nucleated RBC Absolute Count (auto) 0.00 K/uL Peripheral Blood Smear Yes Y/N Glomerular Filtration Rate Calc > 60.0 Calcium Level 10.0 mg/dl (8.4-10.2) Magnesium Level 1.7 mg/dl (1.7-2.2) Total Bilirubin 0.4 mg/dl (0.2-1.3) Aspartate Amino Transf (AST/SGOT) 56 U/L (0-35) Alanine Aminotransferase (ALT/SGPT) 73 U/L (0-56) Alkaline Phosphatase 66 U/L (0-126) Total Protein 7.2 gm/dl (6.3-8.2) Albumin 4.2 g/dl (3.5-5.0) Toxicology Test 07/17/17 06:07 Valproic Acid (Depakene) Level 29.3 ug/ml Urinalysis Test 07/14/17 00:00 Urine Color Straw Urine Clarity Clear Urine pH 6.0 pH (4.8-9.5) Urine Specific [place] 1.002 Urine Protein Negative mg/dL (NEGATIVE) Urine Glucose (UA) Negative mg/dL (NEGATIVE) Urine Ketones Trace mg/dL (NEGATIVE) Urine Blood Small (NEGATIVE) Urine Nitrite Negative (NEGATIVE) Urine Bilirubin Negative (NEGATIVE) Urine Urobilinogen Negative mg/dL (0.2-1.9) Urine Leukocyte Esterase Negative (NEGATIVE) Urine RBC <1 /HPF (0-2/HPF) Urine WBC <1 /HPF (0-5/HPF) Urine Squamous Epithelial Cells None /LPF (</=FEW) Urine Bacteria Negative /HPF (NONE-FEW) Urine Mucus None /HPF (NONE-FEW) Muscle Strength and Tone: WNL Gait and Station: Steady S Medications Reviewed: Side Effects, Benefits of Medication, Risks Allergies Reviewed: Yes Mental Status Exam General Appearance: Casual, Well Groomed, Good Eye Contact, Cooperative, Polite , Good Interaction, No Tearful, Psychomotor Agitation (minimal tremor), No Psychomotor Retardation, No Bizarre Mannerisms, No Tics, Other Speech: Clear, Spontaneous, Normal Rate, Normal Rhythm, Normal Volume, Normal Tone, No Slurred, No Garbled, No Rambling Mood: Euthymic Affect: Full and Appropriate, Calm, No Withdrawn, No Tearful, No Anxious, No Agitated Thought Process: Organized, Logical, Goal Directed, No Loose Associations, No Flight of Ideas Thought Content: No Suicidal Ideation, No Homicidal Ideation, No Delusions, No Auditory Halllucinations, No Visual Hallucinations, No Thought Broadcasting, No Ideas of Reference, No Obsessions, No Compulsions Sensorium: Other (much improved ) Cognition: Alert & Oriented-Person, Alert & Oriented-Place, Alert & Oriented- Time (partially today ), Srvcb-Scareqpe-Irzvpjkbh Memory: Immediate, Recent, Remote Intelligence: Average (historically ) Insight Judgment: Poor (improving, but risk or relapse unfortunantly remains high. ), No Fair Result Diagram: 07/18/1760107/18/17601 [facility] Assessment and Plan Pkph-jl-[id number] Encounter Date: July 18, 2017 Herv-ft-[id number] Encounter Time: 11:15 [facility] Plan: Admit to Unit, Necessary Precautions, Individual/Group Therapy, Admin /Titrate Meds, Educate Patient Multpiple Antipsychotics Used: No Problems: (1) Alcohol withdrawal delirium, acute, hyperactive Status: Acute (2) Seizure due to alcohol withdrawal Status: Resolved (3) Alcohol dependence in controlled environment Status: Chronic (4) Cannabis use disorder, severe, in controlled environment Status: Chronic Condition 1. will tentatively plan for discharge tomorrow, if delirium and withdrawal are adequately resolved. 2. establish plan to effectively maintain abstinence. ADILENE NARAYANAN MD July 18, 2017 11:17
[2017-07-18 13:25] VITALS: BP 122/84
[2017-07-18] MEDS: NICOTINE POLACRILEX 2 MG GUM PO PRN (17:27)
[2017-07-18] MEDS: DIAZEPAM 10 MG TAB PO PRN (21:33)
[2017-07-19 02:30] VITALS: BP 110/67
[2017-07-19 07:35] VITALS: BP 104/76
[2017-07-19] MEDS: MULTIVITAMINS TAB PO SCH (08:10)
[2017-07-19] MEDS: THIAMINE HCL 100 MG TAB PO SCH (08:10)
[2017-07-19] MEDS ORDERED: MULT-1379 PO (12:44)
[2017-07-19] MEDS ORDERED: NICO-219 BC (12:45)
[2017-07-19] MEDS: NICOTINE POLACRILEX 2 MG GUM PO PRN (13:50)
--- NOTE | 2017-07-20 19:25 | DISCHARGE SUMMARY ---
DATE OF ADMISSION: July 13, 2017 DATE OF DISCHARGE: July 19, 2017 Patient was seen at time of note concerning this dictation on the a.m. of July, at approximately 0830 hours. FINAL DIAGNOSES 1. Alcohol use disorder, severe. 2. Alcohol withdrawal, severe with delirium, considered resolved at time of discharge. 3. Social stressors related to severe alcohol use disorder and patient suffering from ongoing cannabis use disorder as well. REASON FOR ADMISSION This is a 22-year-old male who was admitted after experiencing seizures through the ER on July 13, 2017, what appeared to be related to alcohol withdrawal. Patient was admitted without incident. Patient undergoing significant and severe alcohol withdrawal management with high-dose benzodiazepines. Patient also suffering from delirium tremens, requiring administrations of mood stabilizers and antipsychotics. Please see electronic record. Patient's delirium and withdrawal eventually became controlled. Patient became very polite and compliant, and patient was able to stay until all alcohol withdrawal and delirium had resolved. Patient was strongly encouraged to enter residential rehab for severe, longstanding alcohol use disorder. 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 Patient met with family members and remained calm and cooperative on the unit once delirium had resolved. PHYSICAL EXAMINATION Please see emergency room note. Notable for: GENERAL: Postictal 22-year-old male suffering from alcohol withdrawal and delirium. VITAL SIGNS: At time of admission, temperature 98.3, pulse 111, respiratory rate 16, blood pressure 166/83, and pulse oximetry 91 on room air. At time of discharge from [facility], vital signs showed temperature 97.6, pulse 72 , respiratory rate 16, blood pressure 104/76, and pulse oximetry 98 on room air. LABORATORY DATA On July 18, 2017, CBC notable for MCV elevated at 96.9; otherwise unremarkable. Chemistry panel on July 18, 2017, notable for total bilirubin 0.4, elevated AST at 56 with an elevated ALT of 73. Valproic acid level used to treat delirium and then stopped reached a level of 29.3. Urinalysis showed small urine blood present; otherwise unremarkable. Magnesium 2.1. TSH 1.48 on 13 Jul 2017. Toxicology screen showing a serum alcohol level of 99 on 13 Jul 2017 and positive for cannabis. MENTAL STATUS EXAMINATION AT TIME OF DISCHARGE GENERAL APPEARANCE, BEHAVIOR, AND ATTITUDE: This is a calm, cooperative, very polite, 22-year-old male. No psychomotor agitation or retardation. Interacting well. No bizarre mannerisms or tics. SPEECH: Within normal limits. Regular rate, rhythm, volume, and tone. MOOD: Described as improved. AFFECT: Full and mood congruent. THOUGHT PROCESSES: Goal directed, logical. No loose associations or flight of ideas. THOUGHT CONTENT: Free of auditory or visual hallucinations, ideas of reference , thought broadcasting, delusions, obsessions, compulsions. Patient denying any suicidal or homicidal ideations. SENSORIUM: Clear. COGNITION: Alert and oriented to person, place, time, situation. MEMORY: Immediate, recent, and remote estimated intact. INTELLIGENCE: Average based on interview. INSIGHT AND JUDGMENT: Considered grossly intact and appropriate for outpatient treatment in the absence of alcohol use. RESULTS OF TESTING IMAGING: Please see ER note concerning head imaging, which was unremarkable. LABORATORY DATA: Please see above. CONSULTATIONS Patient was briefly consulted by hospitalist service resolving around administration of IV Ativan for alcohol withdrawal treatment. TREATMENT Patient received medications, participated in individual and group therapy. HOSPITAL COURSE Initially, this patient's alcohol withdrawal and associated delirium were considered very significant and difficult to get under control. Patient required a wide range of medications including benzodiazepines and antipsychotics as well as mood stabilizers for ultimately what did control patient's delirium and resolved alcohol withdrawal. Once that took place, patient became very calm, cooperative, and pleasant throughout the rest of his stay, took an active role in his treatment. CONDITION OF PATIENT ON DISCHARGE Stable, considered minimal risk to himself or others in the absence of alcohol use and cannabis use. DISPOSITION Patient was discharged to home in care of family members. He agreed to abstain from cannabis and alcohol. It was strongly recommended that patient enter residential treatment. Patient would consider IOP versus AA and obtaining a sponsor. Crisis line was given should symptoms return. Patient would continue his multivitamin over the counter daily and encouraged to stop nicotine consumption with the aid of [id number] nicotine replacement. Patient, again, agreed to stop cannabis and the use of alcohol. He would call crisis line should symptoms return. Risks, benefits, and alternatives of above discharge plan were discussed, and informed consent was given to proceed with above discharge plan by this competent patient and patient's family members present at time of discharge. ETIENNE
== END 2017-07-19 17:02 | disposition home or self-care (01) | DRG 897 ==
LOC: BHS 20:27
PROVIDERS: ADMIT Nurse Practitioner Psychiatric/Mental Health; ATTEND Nurse Practitioner Psychiatric/Mental Health
DX: F10.231 Alcohol dependence with withdrawal delirium (principal); G40.509 Epileptic seizures related to external causes, not intractable, without status epilepticus; E87.2 Acidosis; F12.20 Cannabis dependence, uncomplicated; S00.03XA Contusion of scalp, initial encounter; W18.30XA Fall on same level, unspecified, initial encounter; Y92.9 Unspecified place or not applicable; Y99.0 Civilian activity done for income or pay; Z62.811 Personal history of psychological abuse in childhood; Z62.812 Personal history of neglect in childhood; Z59.0 Homelessness; Z81.1 Family history of alcohol abuse and dependence
CPT/HCPCS: 36415; 80164; 81001; 82040; 82247; 82310; 82374; 82435; 82565; 82947; 83735; 84075; 84132; 84155; 84295; 84450; 84460; 84520; 85025; 90853; 93005; J2060; Q0161; Q0163

== ENCOUNTER → 2017-07-13 | Outpatient (CLI) | payer SELFPAY ==
[~2017-07-13] MED LIST: LORA-1456 PO; MULT-1379 PO; NICO-219 BC
== END ==
LOC: AMB 13:49
PROVIDERS: ATTEND Nurse Practitioner
DX: R56.9 Unspecified convulsions (principal); S09.90XA Unspecified injury of head, initial encounter; W18.30XA Fall on same level, unspecified, initial encounter
CPT/HCPCS: A0425; A0427

== ENCOUNTER 2017-12-29 14:35 | Inpatient (IN) | payer SELFPAY ==
[~2017-12-29] VITALS: Ht 180.3 cm; Wt 64.9 kg
[~2017-12-29 14:35] MED LIST changes: +MULT-1379 PO; +NICO-219 BC
--- NOTE | 2017-12-29 14:39 | ER Report ---
History and Physical Time Seen By MD: 14:39 HPI/ROS CHIEF COMPLAINT: Alcohol detox HISTORY OF PRESENT ILLNESS: 22-year-old male patient presents to emergency room with complaint of alcohol detox. Patient states that he has been drinking heavily for quite some time. He did go through detox in July. He was sober for a short period time and then relapse. Patient states that he would like to detox, he states that he has a support group and is encouraging him to be sober. He has a friend who recently finished detox as well. Patient states that he had a seizure 2 days ago and was seen at the emergency room in [place]. He states that he has continued to drink, typically spend about 40 ounces of beer in conjunction with 2 shots. States has been daily. States his last drink was part of a 40 prior to coming in. REVIEW OF SYSTEMS: Respiratory: No cough, no dyspnea. Cardiovascular: No chest pain, no palpitations. Gastrointestinal: No vomiting, no abdominal pain. Musculoskeletal: No back pain. Allergies: Coded Allergies: No Known Drug Allergies (Unverified , 12/21/17) Home Meds No Active Prescriptions or Reported Meds Past Medical/Surgical History Patient has a past medical history of seizure, marijuana use, alcohol abuse. Patient has surgical history of cardiac ablation for Lzook-Ujmktfokx-Nblsx syndrome, wisdom teeth removed. Reviewed Nurses Notes: Yes Hx Smoking: Yes Smoking Status: Heavy Tobacco Smoker Exposure to Second Hand Smoke?: No Hx Substance Use Disorder: Yes (MARIJUANA) Hx Alcohol Use: Yes Constitutional Vital Sign - Last 24 Hours 12/29/17 12/29/17 12/29/17 12/29/17 14:52 14:53 15:00 15:05 Temp 98.9 Pulse 93 86 Resp 20 16 B/P (MAP) 132/77 132/77 (95) 112/60 (77) Pulse Ox 93 94 O2 Delivery Room Air 12/29/17 12/29/17 12/29/17 12/29/17 15:30 15:35 16:00 16:05 Pulse 88 78 Resp 21 27 B/P (MAP) 104/30 (54) 109/61 (77) Pulse Ox 94 94 12/29/17 12/29/17 12/29/17 12/29/17 16:30 17:00 17:30 18:00 Pulse 80 83 86 79 Resp 26 26 13 26 B/P (MAP) 114/62 (79) 113/73 (86) 109/87 (94) Pulse Ox 94 92 95 93 Physical Exam General Appearance: The patient is alert, has no immediate need for airway protection and no current signs of toxicity. Respiratory: Chest is non tender, lungs are clear to auscultation. Cardiac: regular rate and rhythm Gastrointestinal: Abdomen is soft and non tender, no masses, bowel sounds normal. Musculoskeletal: Neck: Neck is supple and non tender. Extremities have full range of motion and are non tender. Skin: No rashes or lesions. DIFFERENTIAL DIAGNOSIS: After history and physical exam differential diagnosis was considered for alcohol detox, substance abuse. Medical Decision Making Data Points Result Diagram: 12/29/17 1508 12/29/17 1508 Laboratory Hematology Test 12/29/17 14:50 12/29/17 15:08 12/29/17 16:47 Urine Color Yellow Urine Clarity Clear Urine pH 5.0 pH (4.8-9.5) Urine Specific [place] 1.008 Urine Protein Negative mg/dL (NEGATIVE) Urine Glucose (UA) 50 mg/dL (NEGATIVE) Urine Ketones Negative mg/dL (NEGATIVE) Urine Blood Negative (NEGATIVE) Urine Nitrite Negative (NEGATIVE) Urine Bilirubin Negative (NEGATIVE) Urine Urobilinogen Negative mg/dL (0.2-1.9) Urine Leukocyte Esterase Negative (NEGATIVE) Urine RBC None /HPF (0-2/HPF) Urine WBC 1 /HPF (0-5/HPF) Urine Squamous Epithelial Cells None /LPF (</=FEW) Urine Bacteria Negative /HPF (NONE-FEW) Urine Mucus None /HPF (NONE-FEW) Urine Opiates Screen Negative Urine Barbiturates Screen Negative Ur Tricyclic Antidepressants Screen Negative Urine Phencyclidine Screen Negative Urine Amphetamines Screen Negative Urine Benzodiazepines Screen Negative Urine Cocaine Screen Negative Urine Cannabinoids Screen Positive Red Blood Count 4.06 M/uL (4.00-5.60) Mean Corpuscular Volume 99.3 fL (80.0-96.0) Mean Corpuscular Hemoglobin 33.2 pg (26.0-33.0) Mean Corpuscular Hemoglobin Concent 33.4 g/dL (32.0-36.0) Red Cell Distribution Width 14.1 % (11.5-14.5) Mean Platelet Volume 8.7 fL (7.2-11.1) Neutrophils (%) (Auto) 57.9 % (39.4-72.5) Lymphocytes (%) (Auto) 25.9 % (17.6-49.6) Monocytes (%) (Auto) 14.9 % (4.1-12.4) Eosinophils (%) (Auto) 0.8 % (0.4-6.7) Basophils (%) (Auto) 0.5 % (0.3-1.4) Nucleated RBC Relative Count (auto) 0.1 /100WBC Neutrophils # (Auto) 3.1 K/uL (2.0-7.4) Lymphocytes # (Auto) 1.4 K/uL (1.3-3.6) Monocytes # (Auto) 0.8 K/uL (0.3-1.0) Eosinophils # (Auto) 0.0 K/uL (0.0-0.5) Basophils # (Auto) 0.0 K/uL (0.0-0.1) Nucleated RBC Absolute Count (auto) 0.00 K/uL Sodium Level 141 mmol/L (137-145) Potassium Level 3.6 mmol/L (3.5-5.0) Chloride Level 106 mmol/L (98-107) Carbon Dioxide Level 22 mmol/L (22-30) Blood Urea Nitrogen 8 mg/dl (9-21) Creatinine 0.90 mg/dl (0.66-1.25) Glomerular Filtration Rate Calc > 60.0 Random Glucose 106 mg/dl (75-110) Calcium Level 8.9 mg/dl (8.4-10.2) Magnesium Level 1.8 mg/dl (1.7-2.2) Total Bilirubin 0.3 mg/dl (0.2-1.3) Aspartate Amino Transf (AST/SGOT) 99 U/L (0-35) Alanine Aminotransferase (ALT/SGPT) 129 U/L (0-56) Alkaline Phosphatase 74 U/L (0-126) Total Protein 7.5 g/dl (6.3-8.2) Albumin 4.4 g/dl (3.5-5.0) Salicylates Level < 10 mg/L Salicylate Last Dose Date unk Acetaminophen Level < 10 ug/ml Serum Alcohol 205 mg/dl Chemistry Test 12/29/17 14:50 12/29/17 15:08 12/29/17 16:47 Urine Color Yellow Urine Clarity Clear Urine pH 5.0 pH (4.8-9.5) Urine Specific [place] 1.008 Urine Protein Negative mg/dL (NEGATIVE) Urine Glucose (UA) 50 mg/dL (NEGATIVE) Urine Ketones Negative mg/dL (NEGATIVE) Urine Blood Negative (NEGATIVE) Urine Nitrite Negative (NEGATIVE) Urine Bilirubin Negative (NEGATIVE) Urine Urobilinogen Negative mg/dL (0.2-1.9) Urine Leukocyte Esterase Negative (NEGATIVE) Urine RBC None /HPF (0-2/HPF) Urine WBC 1 /HPF (0-5/HPF) Urine Squamous Epithelial Cells None /LPF (</=FEW) Urine Bacteria Negative /HPF (NONE-FEW) Urine Mucus None /HPF (NONE-FEW) Urine Opiates Screen Negative Urine Barbiturates Screen Negative Ur Tricyclic Antidepressants Screen Negative Urine Phencyclidine Screen Negative Urine Amphetamines Screen Negative Urine Benzodiazepines Screen Negative Urine Cocaine Screen Negative Urine Cannabinoids Screen Positive White Blood Count 5.3 k/uL (4.5-11.0) Red Blood Count 4.06 M/uL (4.00-5.60) Hemoglobin 13.5 g/dL (14.0-18.0) Hematocrit 40.3 % (42.0-52.0) Mean Corpuscular Volume 99.3 fL (80.0-96.0) Mean Corpuscular Hemoglobin 33.2 pg (26.0-33.0) Mean Corpuscular Hemoglobin Concent 33.4 g/dL (32.0-36.0) Red Cell Distribution Width 14.1 % (11.5-14.5) Platelet Count 128 K/uL (150-450) Mean Platelet Volume 8.7 fL (7.2-11.1) Neutrophils (%) (Auto) 57.9 % (39.4-72.5) Lymphocytes (%) (Auto) 25.9 % (17.6-49.6) Monocytes (%) (Auto) 14.9 % (4.1-12.4) Eosinophils (%) (Auto) 0.8 % (0.4-6.7) Basophils (%) (Auto) 0.5 % (0.3-1.4) Nucleated RBC Relative Count (auto) 0.1 /100WBC Neutrophils # (Auto) 3.1 K/uL (2.0-7.4) Lymphocytes # (Auto) 1.4 K/uL (1.3-3.6) Monocytes # (Auto) 0.8 K/uL (0.3-1.0) Eosinophils # (Auto) 0.0 K/uL (0.0-0.5) Basophils # (Auto) 0.0 K/uL (0.0-0.1) Nucleated RBC Absolute Count (auto) 0.00 K/uL Glomerular Filtration Rate Calc > 60.0 Calcium Level 8.9 mg/dl (8.4-10.2) Magnesium Level 1.8 mg/dl (1.7-2.2) Total Bilirubin 0.3 mg/dl (0.2-1.3) Aspartate Amino Transf (AST/SGOT) 99 U/L (0-35) Alanine Aminotransferase (ALT/SGPT) 129 U/L (0-56) Alkaline Phosphatase 74 U/L (0-126) Total Protein 7.5 g/dl (6.3-8.2) Albumin 4.4 g/dl (3.5-5.0) Salicylates Level < 10 mg/L Salicylate Last Dose Date unk Acetaminophen Level < 10 ug/ml Serum Alcohol 205 mg/dl Toxicology Test 12/29/17 14:50 12/29/17 15:08 12/29/17 16:47 Urine Opiates Screen Negative Urine Barbiturates Screen Negative Ur Tricyclic Antidepressants Screen Negative Urine Phencyclidine Screen Negative Urine Amphetamines Screen Negative Urine Benzodiazepines Screen Negative Urine Cocaine Screen Negative Urine Cannabinoids Screen Positive Salicylates Level < 10 mg/L Salicylate Last Dose Date unk Acetaminophen Level < 10 ug/ml Serum Alcohol 205 mg/dl Urinalysis Test 12/29/17 14:50 Urine Color Yellow Urine Clarity Clear Urine pH 5.0 pH (4.8-9.5) Urine Specific [place] 1.008 Urine Protein Negative mg/dL (NEGATIVE) Urine Glucose (UA) 50 mg/dL (NEGATIVE) Urine Ketones Negative mg/dL (NEGATIVE) Urine Blood Negative (NEGATIVE) Urine Nitrite Negative (NEGATIVE) Urine Bilirubin Negative (NEGATIVE) Urine Urobilinogen Negative mg/dL (0.2-1.9) Urine Leukocyte Esterase Negative (NEGATIVE) Urine RBC None /HPF (0-2/HPF) Urine WBC 1 /HPF (0-5/HPF) Urine Squamous Epithelial Cells None /LPF (</=FEW) Urine Bacteria Negative /HPF (NONE-FEW) Urine Mucus None /HPF (NONE-FEW) ED Course/Re-evaluation ED Course Patient was admitted to exam room, history and physical were obtained. Differential diagnoses were considered. On examination lungs are clear, heart is regular, abdomen is soft and nontender. Patient would like to admitted for detox. Patient was given 10 mg of Valium Lab work for a behavioral health ad mission were done. Patient had an elevated blood alcohol of 254, AST and ALT were slightly elevated. I discussed the case with Dr. Torres, psychiatrist, she requested that we do a repeat blood alcohol testing one hour, to make sure what alcohol is going down not up. She is concerned the patient may need to be detoxed on the medical floor. A repeat blood alcohol was done, that time is 205. Patient was having some anxiety received an additional 10 mg of Valium. I discussed the lab results with Dr. Torres, she requested that patient be admitted to the medical side for detox as he had a difficult detox last time. I discussed the case with Dr. Arizmendi, hospitalist, who came down and evaluated the patient here in the emergency room and agreed to accept the patient for admission. Decision to Disposition Date: Dec 29, 2017 Decision to Disposition Time: 18:05 Depart Departure Latest Vital Signs Vital Signs Date Time Temp Pulse Resp B/P (MAP) Pulse Ox O2 Delivery O2 Flow Rate FiO2 12/29/17 18:00 79 26 109/87 (94) 93 12/29/17 14:52 98.9 Room Air Impression: Primary Impression: Alcohol dependence in controlled environment Additional Impression: Desire for detoxification Condition: Improved Disposition: Admitted from ER New Scripts No Active Prescriptions or Reported Meds Problem Qualifiers VANESSA RILEY Dec 29, 2017 14:39
[2017-12-29] MEDS ORDERED: DIAZEPAM 10 MG TAB PO ONE ×2 (15:05→17:20)
[2017-12-29 15:19] LABS: PLATELET COUNT, AUTOMATED 128 K/uL (150-450)
[2017-12-29 18:23] VITALS: BP 135/88
[2017-12-29] MEDS ORDERED: NICOTINE INH SYSTEM 10 MG/INH INH PRN (18:25)
[2017-12-29] MEDS ORDERED: DIAZEPAM 10 MG TAB PO PRN ×2 (18:25)
[2017-12-29] MEDS ORDERED: LORazepam 2 MG/ML VIAL IVP PRN (18:25)
--- NOTE | 2017-12-29 18:42 | History & Physical ---
History of Present Illness History of Present Illness 22yo male with h/o alcohol related seizures and DT's who came to the ER wanting to stop drinking alcohol. He was in our S from 07/13/17 to 07/19/17 for alcohol withdrawal. He had 2 seizures before coming to the ER and his withdrawal was complicated by DT's (i.e. confusion). He reports have a seizure 2 days ago and went to the ER in [facility]. He doesn't really know what happened, but was discharged from the ER. He reports that his last drink was just before coming in to the ER tonight. He typically drinks a couple shots of peppermint schnapps and 3 forty ounce bottles of malt liquor. He also smokes about one "blunt" per day and a pack of cigarettes. History Problems: (1) Alcohol abuse Home Meds No Active Prescriptions or Reported Meds Allergies: Coded Allergies: No Known Drug Allergies (Unverified , 12/21/17) Other Social/Family Hx He works with a [employer] business. See HPI. Hx Smoking: Yes Smoking Status: Heavy Tobacco Smoker Exposure to Second Hand Smoke?: No Hx Alcohol Use: Yes Alcohol Use: Currently Alcohol Used: Beer, Liquor Alcohol Withdrawl Symptoms: Tremors Hx Substance Use Disorder: Yes Social Drug Use: Currently Social Drugs: Cocaine Amount Of Social Drug/s Used: EVERY OTHER DAY Review of Systems All Systems Reviewed/Normal: Yes, Except as Noted Exam Vital Signs Vital Signs Date Time Temp Pulse Resp B/P (MAP) Pulse Ox O2 Delivery O2 Flow Rate FiO2 12/29/17 18:23 98.1 79 16 135/88 (104) 92 Room Air General Appearance: Alert, Awake, No Acute Distress Eyes: PERRLA ENT: Moist Mucous Membranes Cardiovascular: Regular Rate and Rhythm Respiratory: Clear to Auscultation GI: Abd Soft and Non-Tender (Liver edge palpable about 5cm below the costochondral margin on the mid clav line. He was sitting up at about 45 degrees) Extremities: No Edema Integumentary: No Jaundice, No Cyanosis Medical Decision Making Data Points Result Diagram: 12/29/17 1508 12/29/17 1508 Item Value Date Time Aspartate Amino Transf (AST/SGOT) 99 U/L H 12/29/17 1508 Alanine Aminotransferase (ALT/SGPT) 129 U/L H 12/29/17 1508 Alkaline Phosphatase 74 U/L 12/29/17 1508 Total Protein 7.5 g/dl 12/29/17 1508 Albumin 4.4 g/dl 12/29/17 1508 Total Bilirubin 0.3 mg/dl 12/29/17 1508 Magnesium Level 1.8 mg/dl 12/29/17 1508 Mean Corpuscular Volume 99.3 fL H 12/29/17 1508 Platelet Count 128 K/uL L 12/29/17 1508 Neutrophils (%) (Auto) 57.9 % 12/29/17 1508 Lymphocytes (%) (Auto) 25.9 % 12/29/17 1508 Urine RBC None /HPF 12/29/17 1450 Urine WBC 1 /HPF 12/29/17 1450 Urine Squamous Epithelial Cells None /LPF 12/29/17 1450 Urine Bacteria Negative /HPF 12/29/17 1450 Urine Mucus None /HPF 12/29/17 1450 Serum Alcohol 205 mg/dl 12/29/17 1647 Serum Alcohol 254 mg/dl 12/29/17 1508 Acetaminophen Level < 10 ug/ml 12/29/17 1508 Salicylates Level < 10 mg/L 12/29/17 1508 Urine Cannabinoids Screen Positive 12/29/17 1450 Assessment and Plan Problems: (1) Desire for detoxification Status: Acute Assessment & Plan: He presented with wanting to stop drinking alcohol. His last drink was right before coming into the ER. He has had withdrawal seizures a couple of times and had DT's in July during his [facility] stay for withdrawal. He w ill be placed on the CIWA with oral Valium to cover. Seizure precautions will be implemented. Ativan 1-4mg IV prn seizures and agitation. He will get a banana bag. Recheck electrolytes including Mg tomorrow. Venous Thromboembolism Antithrombotics Is Pt On Any Antithrombotics?: No Exam Sepsis Risk: No Definite Risk MARU BANKS MD Dec 29, 2017 18:42
[2017-12-29 19:52] VITALS: BP 126/81
[2017-12-29] MEDS ORDERED: MULTIVITAMINS(*) 10 ML VIAL 10 ML, THIAMINE HCL(*) 200 MG/2 ML IN 100 MG, FOLIC ACID(*)... IV ONE (20:00)
[2017-12-30 00:08] VITALS: BP 146/81
[2017-12-30 04:15] VITALS: BP 125/71
[2017-12-30 06:43] LABS: PLATELET COUNT, AUTOMATED 140 K/uL (150-450)
[2017-12-30 06:54] LABS: INR 0.92
--- NOTE | 2017-12-30 08:15 | Hospitalist Progress Note ---
Subjective Progress Notes Subjective He is awake and alert. Oriented to person, place, and time. Physical Exam Vital Signs Date Time Temp Pulse Resp B/P (MAP) Pulse Ox O2 Delivery O2 Flow Rate FiO2 12/30/17 04:15 98.5 73 16 125/71 (89) 94 Room Air Intake and Output 12/30/17 07:00 Intake Total 1000 ml Balance 1000 ml IV Total 1000 ml # Voids 3 General Appearance: Alert, Awake, Other (mild tremulousness) Cardiovascular: Regular Rate and Rhythm Respiratory: Clear to Auscultation GI: Soft and Non-Tender Extremities: Warm, Perfused Psych: Alert & Oriented X3 Result Diagram: 12/30/1753012/30/17530 Item Value Date Time Albumin 4.0 g/dl 12/30/17530 Total Protein 7.2 g/dl 12/30/17 05 Alkaline Phosphatase 86 U/L 12/30/17530 Alanine Aminotransferase (ALT/SGPT) 116 U/L H 12/30/1731 Aspartate Amino Transf (AST/SGOT) 96 U/L H 12/30/17530 Total Bilirubin 0.4 mg/dl 12/30/17530 Magnesium Level 2.3 mg/dl H 12/30/17530 Calcium Level 9.1 mg/dl 12/30/17530 Assessment and Plan Problems: (1) Desire for detoxification Status: Acute Assessment & Plan: He presented wanting to stop drinking alcohol. His last drink was right before coming into the ER. He has had withdrawal seizures in the past. He is on the CIWA protocol with oral Valium (and IV Ativan if needed), seizure precautions, monitoring. He appears to be doing well thus far. Will have the Substance Abuse Counselor see to discuss options to maintain abstinence. Exam Sepsis Risk: No Definite Risk RANDI PALACIOS MD Dec 30, 2017 08:15
[2017-12-30 08:20] VITALS: BP 142/97
[2017-12-30] MEDS ORDERED: THIAMINE HCL 100 MG TAB PO SCH (09:00)
[2017-12-30] MEDS ORDERED: FOLIC ACID 1 MG TAB PO SCH (09:00)
[2017-12-30 12:25] VITALS: BP 156/98
[2017-12-30 13:07] VITALS: Ht 180.3 cm; Wt 64.9 kg
--- NOTE | 2017-12-30 15:30 | Hospitalist Depart ---
Discharge Summary Reason for Hosp/Final Diag: (1) Desire for detoxification Status: Acute Hospital Course & Plan: He presented wanting to stop drinking alcohol. His last drink was right before coming into the ER. He has had withdrawal seizures in the past. He was placed on the CIWA protocol with oral Valium (and IV Ativan if needed), seizure precautions, monitoring. He appeared to be doing well. We had plans for the Substance Abuse Counselor meet with him to discuss options to maintain abstinence. He decided he did not want to remain hospitalized any further due to "a family issue". He signed himself out against medical advice. Departure Weight (Pounds): 143 Result Diagram: 12/30/1753012/30/17530 Item Value Date Time White Blood Count 5.3 k/uL 12/29/17 1508 Hemoglobin 13.5 g/dL L 12/29/17 1508 Hematocrit 40.3 % L 12/29/17 1508 Platelet Count 128 K/uL L 12/29/17 1508 Sodium Level 141 mmol/L 12/29/17 1508 Potassium Level 3.6 mmol/L 12/29/17 1508 Chloride Level 106 mmol/L 12/29/17 1508 Carbon Dioxide Level 22 mmol/L 12/29/17 1508 Blood Urea Nitrogen 8 mg/dl L 12/29/17 1508 Creatinine 0.90 mg/dl 12/29/17 1508 Glomerular Filtration Rate Calc > 60.0 12/29/17 1508 Random Glucose 106 mg/dl 12/29/17 1508 Calcium Level 8.9 mg/dl 12/29/17 1508 Magnesium Level 1.8 mg/dl 12/29/17 1508 Total Bilirubin 0.3 mg/dl 12/29/17 1508 Aspartate Amino Transf (AST/SGOT) 99 U/L H 12/29/17 1508 Alanine Aminotransferase (ALT/SGPT) 129 U/L H 12/29/17 1508 Alkaline Phosphatase 74 U/L 12/29/17 1508 Total Protein 7.5 g/dl 12/29/17 1508 Albumin 4.4 g/dl 12/29/17 1508 Urine Color Yellow 12/29/17 1450 Urine Clarity Clear 12/29/17 1450 Urine pH 5.0 pH 12/29/17 1450 Urine Specific [place] 1.008 12/29/17 1450 Urine Protein Negative mg/dL 12/29/17 1450 Urine Glucose (UA) 50 mg/dL H 12/29/17 1450 Urine Ketones Negative mg/dL 12/29/17 1450 Urine Blood Negative 12/29/17 1450 Urine Nitrite Negative 12/29/17 1450 Urine Bilirubin Negative 12/29/17 1450 Urine Urobilinogen Negative mg/dL 12/29/17 1450 Urine Leukocyte Esterase Negative 12/29/17 1450 Urine RBC None /HPF 12/29/17 1450 Urine WBC 1 /HPF 12/29/17 1450 Urine Squamous Epithelial Cells None /LPF 12/29/17 1450 Urine Bacteria Negative /HPF 12/29/17 1450 Urine Mucus None /HPF 12/29/17 1450 Serum Alcohol 205 mg/dl 12/29/17 1647 Serum Alcohol 254 mg/dl 12/29/17 1508 Acetaminophen Level < 10 ug/ml 12/29/17 1508 Salicylates Level < 10 mg/L 12/29/17 1508 Urine Opiates Screen Negative 12/29/17 1450 Urine Barbiturates Screen Negative 12/29/17 1450 Ur Tricyclic Antidepressants Screen Negative 12/29/17 1450 Urine Phencyclidine Screen Negative 12/29/17 1450 Urine Amphetamines Screen Negative 12/29/17 1450 Urine Benzodiazepines Screen Negative 12/29/17 1450 Urine Cocaine Screen Negative 12/29/17 1450 Urine Cannabinoids Screen Positive 12/29/17 1450 Prothrombin Time 12.4 seconds 12/30/17 0531 Prothromb Time International Ratio 0.92 12/30/17 0531 Condition: No Change (He signed out against medical advice.) Time Spent: > 30 min Discharge Instructions Home Meds No Active Prescriptions or Reported Meds Special Instructions: Patient signed out against medical advice. Venous Thromboembolism Antithrombotics Is Pt On Any Antithrombotics?: No RANDI PALACIOS MD Dec 30, 2017 15:30
[2018-01-02] MEDS ORDERED: INFLUENZA VIRUS VAC 0.5ML SYR IM ONLY ONE (09:00)
== END 2017-12-30 15:00 | disposition left against medical advice (07) | DRG 897 ==
LOC: ER 15:14 → MED 18:01
PROVIDERS: ADMIT Internal Medicine; ATTEND Internal Medicine
DX: F10.230 Alcohol dependence with withdrawal, uncomplicated (principal); F17.210 Nicotine dependence, cigarettes, uncomplicated; I45.6 Pre-excitation syndrome; Z53.29 Procedure and treatment not carried out because of patient's decision for other reasons; Y90.8 Blood alcohol level of 240 mg/100 ml or more; F41.9 Anxiety disorder, unspecified; F12.90 Cannabis use, unspecified, uncomplicated
CPT/HCPCS: 36415; 80305; 80320; 80329; 81001; 82040; 82247; 82310; 82374; 82435; 82565; 82947; 83735; 84075; 84132; 84155; 84295; 84443; 84450; 84460; 84520; 85025; 85610; J3411; J3475; J7030

== ENCOUNTER 2018-01-07 09:55 | Inpatient (IN) | payer SELFPAY ==
[~2018-01-07] VITALS: Ht 180.3 cm; Wt 69.9 kg
--- NOTE | 2018-01-07 09:59 | ER Report ---
History and Physical Time Seen By MD: 09:59 HPI/ROS CHIEF COMPLAINT: Withdrawal seizure from alcohol HISTORY OF PRESENT ILLNESS: Patient is a 22-year-old male here status post seizure while at [facility]. Patient reportedly had a seizure at approximately 735 this morning which lasted until 737 with a subsequent 30 minute postictal period. Patient has a history of alcohol withdrawal seizures and was picked up 2 days prior for a DUI. Patient was given Librium 50 mg at 8:15 and 9:15 prior to transfer to the emergency department for admission. Patient was alert and oriented at time of evaluation, well-appearing, hemodynamically stable with only complaints of right rib pain and mild tremor. In the past, patient reportedly had difficulty with detoxification from alcohol with delirium tremens and significant seizure history. REVIEW OF SYSTEMS: Constitutional: No fever, no chills. Eyes: No discharge. ENT: No sore throat. Cardiovascular: + right chest pain on lateral ribs, no palpitations. Respiratory: No cough, no shortness of breath. Gastrointestinal: No abdominal pain, no vomiting. Genitourinary: No hematuria. Musculoskeletal: No back pain. Skin: No rashes. Neurological: No focal neuro deficits, + seizure at [facility] Allergies: Coded Allergies: No Known Drug Allergies (Unverified , 12/21/17) Home Meds No Active Prescriptions or Reported Meds Hx Smoking: Yes (1PPD) Smoking Status: Heavy Tobacco Smoker Exposure to Second Hand Smoke?: No Hx Substance Use Disorder: Yes (MARIJUANA) Hx Alcohol Use: Yes Constitutional Vital Sign - Last 24 Hours 01/07/18 01/07/18 01/07/18 01/07/18 09:55 10:01 10:02 10:10 Temp 99.0 Pulse ??? 79 81 Resp 20 B/P (MAP) 147/43 (77) 147/43 Pulse Ox 98 94 O2 Delivery Room Air 01/07/18 01/07/18 01/07/18 01/07/18 10:37 10:40 10:55 11:00 Pulse ??? 70 Resp 28 23 B/P (MAP) 109/86 (94) 118/75 (89) Pulse Ox 93 96 01/07/18 01/07/18 01/07/18 01/07/18 11:10 11:25 11:30 11:35 Pulse 79 69 ??? Resp 27 19 B/P (MAP) ???/??? (1665) Pulse Ox 95 96 01/07/18 01/07/18 01/07/18 11:50 12:00 12:05 Pulse 65 60 Resp 17 17 B/P (MAP) 128/85 (99) Pulse Ox 97 96 Physical Exam General Appearance: The patient is alert, has no immediate need for airway protection and no signs of toxicity. NAD Eyes: Pupils equal and round no pallor or injection. ENT, Mouth: Mucous membranes are moist. Respiratory: There are no retractions, lungs are clear to auscultation. Cardiovascular: Regular rate and rhythm. Gastrointestinal: Abdomen is soft and non tender, no masses, bowel sounds normal. Neurological: No focal neuro deficits Skin: Warm and dry, no rashes. Musculoskeletal: Neck is supple non tender. Extremities are nontender, nonswollen and have full range of motion. DIFFERENTIAL DIAGNOSIS: After history and physical exam differential diagnosis was considered for a seizure including but not limited to electrolyte abnormality, alcohol withdrawal, medication noncompliance, head injury, and breakthrough seizure. Medical Decision Making Data Points Result Diagram: 01/07/18 1025 01/07/18 1025 Laboratory Hematology Test 01/07/18 10:25 01/07/18 10:57 Red Blood Count 4.15 M/uL (4.00-5.60) Mean Corpuscular Volume 99.8 fL (80.0-96.0) Mean Corpuscular Hemoglobin 33.5 pg (26.0-33.0) Mean Corpuscular Hemoglobin Concent 33.5 g/dL (32.0-36.0) Red Cell Distribution Width 13.8 % (11.5-14.5) Mean Platelet Volume 7.4 fL (7.2-11.1) Neutrophils (%) (Auto) 81.9 % (39.4-72.5) Lymphocytes (%) (Auto) 5.6 % (17.6-49.6) Monocytes (%) (Auto) 12.2 % (4.1-12.4) Eosinophils (%) (Auto) 0.1 % (0.4-6.7) Basophils (%) (Auto) 0.2 % (0.3-1.4) Nucleated RBC Relative Count (auto) 0.0 /100WBC Neutrophils # (Auto) 8.4 K/uL (2.0-7.4) Lymphocytes # (Auto) 0.6 K/uL (1.3-3.6) Monocytes # (Auto) 1.3 K/uL (0.3-1.0) Eosinophils # (Auto) 0.0 K/uL (0.0-0.5) Basophils # (Auto) 0.0 K/uL (0.0-0.1) Nucleated RBC Absolute Count (auto) 0.00 K/uL Sodium Level 137 mmol/L (137-145) Potassium Level 3.8 mmol/L (3.5-5.0) Chloride Level 100 mmol/L (98-107) Carbon Dioxide Level 28 mmol/L (22-30) Blood Urea Nitrogen 8 mg/dl (9-21) Creatinine 0.90 mg/dl (0.66-1.25) Glomerular Filtration Rate Calc > 60.0 Random Glucose 81 mg/dl (75-110) Calcium Level 9.8 mg/dl (8.4-10.2) Magnesium Level 2.2 mg/dl (1.7-2.2) Total Bilirubin 0.6 mg/dl (0.2-1.3) Aspartate Amino Transf (AST/SGOT) 70 U/L (0-35) Alanine Aminotransferase (ALT/SGPT) 69 U/L (0-56) Alkaline Phosphatase 65 U/L (0-126) Total Protein 8.4 g/dl (6.3-8.2) Albumin 4.7 g/dl (3.5-5.0) Salicylates Level < 10 mg/L Salicylate Last Dose Date unknown Acetaminophen Level < 10 ug/ml Serum Alcohol < 10 mg/dl Urine Color Yellow Urine Clarity Slightly-cloudy Urine pH 6.0 pH (4.8-9.5) Urine Specific [place] 1.008 Urine Protein 30 mg/dL (NEGATIVE) Urine Glucose (UA) 50 mg/dL (NEGATIVE) Urine Ketones Negative mg/dL (NEGATIVE) Urine Blood Negative (NEGATIVE) Urine Nitrite Negative (NEGATIVE) Urine Bilirubin Negative (NEGATIVE) Urine Urobilinogen Negative mg/dL (0.2-1.9) Urine Leukocyte Esterase Negative (NEGATIVE) Urine RBC 4 /HPF (0-2/HPF) Urine WBC 10 /HPF (0-5/HPF) Urine Squamous Epithelial Cells None /LPF (</=FEW) Urine Bacteria Negative /HPF (NONE-FEW) Urine Mucus Few /HPF (NONE-FEW) Urine Opiates Screen Negative Urine Barbiturates Screen Negative Ur Tricyclic Antidepressants Screen Negative Urine Phencyclidine Screen Negative Urine Amphetamines Screen Negative Urine Benzodiazepines Screen Negative Urine Cocaine Screen Negative Urine Cannabinoids Screen Positive Chemistry Test 01/07/18 10:25 01/07/18 10:57 White Blood Count 10.2 k/uL (4.5-11.0) Red Blood Count 4.15 M/uL (4.00-5.60) Hemoglobin 13.9 g/dL (14.0-18.0) Hematocrit 41.4 % (42.0-52.0) Mean Corpuscular Volume 99.8 fL (80.0-96.0) Mean Corpuscular Hemoglobin 33.5 pg (26.0-33.0) Mean Corpuscular Hemoglobin Concent 33.5 g/dL (32.0-36.0) Red Cell Distribution Width 13.8 % (11.5-14.5) Platelet Count 302 K/uL (150-450) Mean Platelet Volume 7.4 fL (7.2-11.1) Neutrophils (%) (Auto) 81.9 % (39.4-72.5) Lymphocytes (%) (Auto) 5.6 % (17.6-49.6) Monocytes (%) (Auto) 12.2 % (4.1-12.4) Eosinophils (%) (Auto) 0.1 % (0.4-6.7) Basophils (%) (Auto) 0.2 % (0.3-1.4) Nucleated RBC Relative Count (auto) 0.0 /100WBC Neutrophils # (Auto) 8.4 K/uL (2.0-7.4) Lymphocytes # (Auto) 0.6 K/uL (1.3-3.6) Monocytes # (Auto) 1.3 K/uL (0.3-1.0) Eosinophils # (Auto) 0.0 K/uL (0.0-0.5) Basophils # (Auto) 0.0 K/uL (0.0-0.1) Nucleated RBC Absolute Count (auto) 0.00 K/uL Glomerular Filtration Rate Calc > 60.0 Calcium Level 9.8 mg/dl (8.4-10.2) Magnesium Level 2.2 mg/dl (1.7-2.2) Total Bilirubin 0.6 mg/dl (0.2-1.3) Aspartate Amino Transf (AST/SGOT) 70 U/L (0-35) Alanine Aminotransferase (ALT/SGPT) 69 U/L (0-56) Alkaline Phosphatase 65 U/L (0-126) Total Protein 8.4 g/dl (6.3-8.2) Albumin 4.7 g/dl (3.5-5.0) Salicylates Level < 10 mg/L Salicylate Last Dose Date unknown Acetaminophen Level < 10 ug/ml Serum Alcohol < 10 mg/dl Urine Color Yellow Urine Clarity Slightly-cloudy Urine pH 6.0 pH (4.8-9.5) Urine Specific [place] 1.008 Urine Protein 30 mg/dL (NEGATIVE) Urine Glucose (UA) 50 mg/dL (NEGATIVE) Urine Ketones Negative mg/dL (NEGATIVE) Urine Blood Negative (NEGATIVE) Urine Nitrite Negative (NEGATIVE) Urine Bilirubin Negative (NEGATIVE) Urine Urobilinogen Negative mg/dL (0.2-1.9) Urine Leukocyte Esterase Negative (NEGATIVE) Urine RBC 4 /HPF (0-2/HPF) Urine WBC 10 /HPF (0-5/HPF) Urine Squamous Epithelial Cells None /LPF (</=FEW) Urine Bacteria Negative /HPF (NONE-FEW) Urine Mucus Few /HPF (NONE-FEW) Urine Opiates Screen Negative Urine Barbiturates Screen Negative Ur Tricyclic Antidepressants Screen Negative Urine Phencyclidine Screen Negative Urine Amphetamines Screen Negative Urine Benzodiazepines Screen Negative Urine Cocaine Screen Negative Urine Cannabinoids Screen Positive Toxicology Test 01/07/18 10:25 01/07/18 10:57 Salicylates Level < 10 mg/L Salicylate Last Dose Date unknown Acetaminophen Level < 10 ug/ml Serum Alcohol < 10 mg/dl Urine Opiates Screen Negative Urine Barbiturates Screen Negative Ur Tricyclic Antidepressants Screen Negative Urine Phencyclidine Screen Negative Urine Amphetamines Screen Negative Urine Benzodiazepines Screen Negative Urine Cocaine Screen Negative Urine Cannabinoids Screen Positive Urinalysis Test 01/07/18 10:57 Urine Color Yellow Urine Clarity Slightly-cloudy Urine pH 6.0 pH (4.8-9.5) Urine Specific [place] 1.008 Urine Protein 30 mg/dL (NEGATIVE) Urine Glucose (UA) 50 mg/dL (NEGATIVE) Urine Ketones Negative mg/dL (NEGATIVE) Urine Blood Negative (NEGATIVE) Urine Nitrite Negative (NEGATIVE) Urine Bilirubin Negative (NEGATIVE) Urine Urobilinogen Negative mg/dL (0.2-1.9) Urine Leukocyte Esterase Negative (NEGATIVE) Urine RBC 4 /HPF (0-2/HPF) Urine WBC 10 /HPF (0-5/HPF) Urine Squamous Epithelial Cells None /LPF (</=FEW) Urine Bacteria Negative /HPF (NONE-FEW) Urine Mucus Few /HPF (NONE-FEW) EKG/Imaging EKG Interpretation 12 lead EKG: Accelerated junctional rhythm, rate 73, QTc 440, no ischemic changes Rhythm: Accelerated junctional rhythm Imaging EXAMINATION: CT HEAD WITHOUT CONTRAST COMPARISON: 07/13/2017 HISTORY: seizure PROCEDURE: Noncontrast CT from the vertex through the skull base. One of the following dose optimization techniques was utilized in the performance of this exam: Automated exposure control; adjustment of the mA and/or kV according to the patient's size; or use of an iterative reconstruction technique. Specific details can be referenced in the facility's radiology CT exam operational policy. FINDINGS: Brain volume: Age-appropriate. Hemorrhage/extra-axial fluid: None. Mass effect/midline shift/edema: None. Ischemia: Blake-white differentiation is preserved. Ventricles and basal cisterns: Within normal limits. Posterior fossa: Negative. Vessels: Negative. Calvarium, skull base, and scalp: Negative. Visualized sinuses and orbits: Within normal limits. IMPRESSION: Negative age-appropriate noncontrast head CT. Location: [facility] - [place], [place] Patient: Austin Hoyt : 1995 Visit/Account:[id number] Date of Sevice: 01/07/2018 Technique: CHEST PA AND LAT, RIBS RIGHT HISTORY: right chest pain COMPARISON: None available Findings: The lungs are clear. No pleural effusion or pneumothorax. The cardiomediastinal silhouette is normal. There is no acute fracture. Impression: 1. No acute cardiopulmonary or acute osseous process. Location: [facility] - [place], [place] Patient: Austin Hoyt : 1995 Visit/Account:[id number] Date of Sevice: 01/07/2018 Technique: CHEST PA AND LAT, RIBS RIGHT HISTORY: right chest pain COMPARISON: None available Findings: The lungs are clear. No pleural effusion or pneumothorax. The cardiomediastinal silhouette is normal. There is no acute fracture. Impression: 1. No acute cardiopulmonary or acute osseous process. ED Course/Re-evaluation ED Course Patient is a 22-year-old male here with complaints of withdrawal seizure from alcohol [facility] from [facility] for [facility] and detoxification. Patient was given Librium prior to arrival and was subsequently given diazepam IV and ordered Ativan when necessary as needed for seizure activity. Patient complained of lateral right rib pain and x-ray imaging showed no acute fractures or pulmonary consolidations or fluid. CT imaging of the head was completed due to patient's report of hitting his head during the seizure activity. CT was unremarkable. EKG was completed to evaluate for patient's history of Bwtqs-[id number]-Fjjur an accelerated junctional rhythm was identified. Patient labs were unremarkable, electrolytes were within normal limits. Patient was admitted to hospitalist service for further care under Dr. Perdomo. Patient was stable at time of admission. Decision to Disposition Date: Jan 07, 2018 Decision to Disposition Time: 11:20 Depart Departure Latest Vital Signs Vital Signs Date Time Temp Pulse Resp B/P (MAP) Pulse Ox O2 Delivery O2 Flow Rate FiO2 01/07/18 12:05 60 17 96 01/07/18 12:00 128/85 (99) 01/07/18 10:02 99.0 Room Air Impression: Primary Impression: Alcohol withdrawal seizure Condition: Improved Disposition: HOME OR SELF-CARE New Scripts No Active Prescriptions or Reported Meds YOANDY DE LA VEGA DO Jan 07, 2018 09:59
[2018-01-07] MEDS ORDERED: THIAMINE HCL(*) 200 MG/2 ML IN 100 MG, FOLIC ACID(*) 50 MG/10 ML INJ 1 MG, MULTIVITAMIN... IV ONE ×2 (10:06→10:15)
[2018-01-07] MEDS ORDERED: DIAZEPAM 50 MG/10 ML MDV IVP ONE (10:10)
[2018-01-07] MEDS ORDERED: LORazepam 2 MG/ML VIAL IVP ONE (10:10)
[2018-01-07 10:30] LABS: PLATELET COUNT, AUTOMATED 302 K/uL (150-450)
--- NOTE | 2018-01-07 11:12 | EKG ---
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 Rate : 073 BPM Atrial Rate : 071 BPM P-R Int : 000 ms QRS Dur : 082 ms QT Int : 400 ms P-R-T Axes : 000 071 050 degrees QTc Int : 440 ms Accelerated Junctional rhythm Abnormal ECG When compared with ECG of 16-JUL-2017 13:19, Previous ECG has undetermined rhythm, needs review Nonspecific T wave abnormality, improved in Inferior leads Confirmed by NASRA KOCH ([id number]) on 01/07/2018 12:15:07 PM Referred By: Confirmed By:NASRA KOCH
--- NOTE | 2018-01-07 12:15 | RADIOLOGY IMAGING REPORT ---
FACILITY: [facility] PATIENT NAME: Austin Hoyt : 1995 MR: [id number] V: [id number] EXAM DATE: ORDERING PHYSICIAN: YOANDY DE LA VEGA TECHNOLOGIST: [place] [facility] [place] Austin Hoy[place] : 1995 Visit/Account:[id number] Date of Sevice: 01/07/2018 Technique: CHEST PA AND LAT, RIBS RIGHT HISTORY: right chest pain COMPARISON: None available Findings: The lungs are clear. No pleural effusion or pneumothorax. The cardiomediastinal silhouett e is normal. There is no acute fracture. Impression: 1. No acute cardiopulmonary or acute osseous process. Report Dictated By: Jayjay Calvo DO at 01/07/2018 12:10 PM Report E-Signed By: Jayjay Calvo DO at 01/07/2018 12:11 PM WSN:[id number]
--- NOTE | 2018-01-07 12:16 | RADIOLOGY IMAGING REPORT ---
FACILITY: [facility] PATIENT NAME: Austin Hoyt : 1995 MR: [id number] V: [id number] EXAM DATE: ORDERING PHYSICIAN: YOANDY DE LA VEGA TECHNOLOGIST: Location: [facility] - [place] Patient: Austin Hoyt : 1995 Visit/Account:[id number] Date of Sevice: 01/07/2018 Technique: CHEST PA AND LAT, RIBS RIGHT HISTORY: right chest pain COMPARISON: None available Findings: The lungs are clear. No pleural effusion or pneumothorax. The cardiomediastinal silhouett e is normal. There is no acute fracture. Impression: 1. No acute cardiopulmonary or acute osseous process. Report Dictated By: Jayjay Calvo DO at 01/07/2018 12:10 PM Report E-Signed By: Jayjay Calvo DO at 01/07/2018 12:11 PM WSN:[id number]
--- NOTE | 2018-01-07 12:23 | RADIOLOGY IMAGING REPORT ---
FACILITY: [facility] PATIENT NAME: Austin Hoyt : 1995 MR: [id number] V: [id number] EXAM DATE: ORDERING PHYSICIAN: YOANDY DE LA VEGA TECHNOLOGIST: Location: [facility] [place] Patient: Austin Hoyt : 1995 Visit/Account:[id number] Date of Sevice: 01/07/2018 EXAMINATION: CT HEAD WITHOUT CONTRAST COMPARISON: 07/13/2017 HISTORY: seizure PROCEDURE: Noncontrast CT from the vertex through the skull base. One of the following dose optimizat ion techniques was utilized in the performance of this exam: Automated exposure control; adjustment o f the mA and/or kV according to the patient's size; or use of an iterative reconstruction technique. Specific details can be referenced in the facility's radiology CT exam operational policy. FINDINGS: Brain volume: Age-appropriate. Hemorrhage/extra-axial fluid: None. Mass effect/midline shift/edema: None. Ischemia: Blake-white differentiation is preserved. Ventricles and basal cisterns: Within normal limits. Posterior fossa: Negative. Vessels: Negative. Calvarium, skull base, and scalp: Negative. Visualized sinuses and orbits: Within normal limits. IMPRESSION: Negative age-appropriate noncontrast head CT. Report Dictated By: Will Ward MD at 01/07/2018 12:15 PM Report E-Signed By: Will Ward MD at 01/07/2018 12:20 PM WSN:[id number]
[2018-01-07 13:30] VITALS: BP 133/77
--- NOTE | 2018-01-07 13:48 | History & Physical ---
History of Present Illness Chief Complaint Seizures History of Present Illness This patient presented to the emergency room with reported seizures while at half-way. He reports that his last drink was yesterday. He developed seizures sometime overnight. He does have a history of withdrawal seizures in the past. History Problems: (1) Alcohol withdrawal seizure Status: Acute Home Meds No Active Prescriptions or Reported Meds Allergies: Coded Allergies: No Known Drug Allergies (Unverified , 12/21/17) Patient History: FH: cancer MOTHER Hx Smoking: Yes (1PPD) Smoking Status: Heavy Tobacco Smoker Exposure to Second Hand Smoke?: No Hx Alcohol Use: Yes Hx Substance Use Disorder: Yes (MARIJUANA) Social Drug Use: Currently Social Drugs: Cocaine Amount Of Social Drug/s Used: EVERY OTHER DAY Review of Systems All Systems Reviewed/Normal: Yes Exam Vital Signs Vital Signs Date Time Temp Pulse Resp B/P (MAP) Pulse Ox O2 Delivery O2 Flow Rate FiO2 01/07/18 12:50 ??? 01/07/18 12:35 9 97 01/07/18 12:30 128/91 (103) 01/07/18 10:02 99.0 Room Air Neuro: No Gross deficits Eyes: PERRLA Cardiovascular: Regular Rate and Rhythm Respiratory: Clear to Auscultation GI: Abd Soft and Non-Tender Extremities: No Edema Integumentary: No Cyanosis Medical Decision Making Data Points Result Diagram: 01/07/18 1025 01/07/18 1025 Assessment and Plan Problems: (1) Alcohol withdrawal seizure Status: Acute Assessment & Plan: He was reported to have had a seizure prior to admission and also has a history of withdrawal seizures in the past. He has been placed on CIWA protocol. Thiamine and folate are also ordered. Venous Thromboembolism Antithrombotics Is Pt On Any Antithrombotics?: No Exam Sepsis Risk: No Definite Risk NASRA KOCH DO Jan 07, 2018 13:48
[2018-01-07] MEDS ORDERED: NICOTINE CARTRIDGE 1 EA PO PRN (14:55)
[2018-01-07 14:57] VITALS: BP 125/84
[2018-01-07] MEDS: DIAZEPAM 10 MG TAB PO PRN ×4 (15:02→23:53)
[2018-01-07 15:03] VITALS: Ht 180.3 cm; Wt 69.9 kg
[2018-01-07 15:56] VITALS: BP 89/60
[2018-01-07] MEDS: NICOTINE INH SYSTEM 10 MG/INH INH PRN (15:59)
[2018-01-07 19:48] VITALS: BP 121/57
[2018-01-07 23:41] VITALS: BP 136/82
[2018-01-08] VITALS (7 sets, daily range): BP systolic 105–122; BP diastolic 61–93
[2018-01-08] MEDS: NICOTINE INH SYSTEM 10 MG/INH INH PRN (00:10)
[2018-01-08] MEDS: DIAZEPAM 10 MG TAB PO PRN ×8 (01:01→07:51)
[2018-01-08] MEDS ORDERED: THIAMINE HCL 200 MG/2 ML INJ IVP SCH (09:00)
[2018-01-08] MEDS ORDERED: FOLIC ACID 1 MG TAB PO SCH (09:00)
--- NOTE | 2018-01-08 09:49 | Hospitalist Depart ---
Discharge Summary Reason for Hosp/Final Diag: (1) Alcohol withdrawal seizure Status: Acute Hospital Course & Plan: He was reported to have had a seizure prior to admission and also has a history of withdrawal seizures in the past. He was placed on CIWA protocol. Thiamine and folate were also ordered. He initially was not scoring high enough on the CIWA to get the full loading of diazepam, so was getting intermittent 10mg doses. However, since about 0300 he has received five 20mg doses. He is alert, and steady on his feet, but is confused to where he is, paranoid, impulsive, and wanting to wander. Because of the wandering and demands on staff to keep in his room but is otherwise cooperative to taking pills, safe with ambulation and his vitals are stable; Dr. Narayanan is agreeable to take the patient to [facility] to have him in seclusion. The patient was willing to go voluntarily. Departure Weight (Pounds): 154 Result Diagram: 01/07/18 1025 01/07/18 1025 Item Value Date Time Mean Corpuscular Volume 99.8 fL H 01/07/18 1025 Mean Corpuscular Hemoglobin 33.5 pg H 01/07/18 1025 Platelet Count 302 K/uL 01/07/18 1025 Aspartate Amino Transf (AST/SGOT) 70 U/L H 01/07/18 1025 Alanine Aminotransferase (ALT/SGPT) 69 U/L H 01/07/18 1025 Alkaline Phosphatase 65 U/L 01/07/18 1025 Total Protein 8.4 g/dl H 01/07/18 1025 Albumin 4.7 g/dl 01/07/18 1025 Total Bilirubin 0.6 mg/dl 01/07/18 1025 Magnesium Level 2.2 mg/dl 01/07/18 1025 Urine RBC 4 /HPF 01/07/18 1057 Urine WBC 10 /HPF 01/07/18 1057 Urine Leukocyte Esterase Negative 01/07/18 1057 Urine Urobilinogen Negative mg/dL 01/07/18 1057 Urine Bilirubin Negative 01/07/18 1057 Urine Nitrite Negative 01/07/18 1057 Urine Blood Negative 01/07/18 1057 Urine Ketones Negative mg/dL 01/07/18 1057 Urine Protein 30 mg/dL 01/07/18 1057 Urine Squamous Epithelial Cells None /LPF 01/07/18 1057 Urine Bacteria Negative /HPF 01/07/18 1057 Urine Cannabinoids Screen Positive 01/07/18 1057 Serum Alcohol < 10 mg/dl 01/07/18 1025 Acetaminophen Level < 10 ug/ml 01/07/18 1025 Salicylates Level < 10 mg/L 01/07/18 1025 Imaging 01/07/[address] - Negative age-appropriate noncontrast head CT. 01/07/18 CXR - 1. No acute cardiopulmonary or acute osseous process. 01/07/18 Rib Xray - 1. No acute cardiopulmonary or acute osseous process. EKG Vent. Rate : 073 BPM Atrial Rate : 071 BPM P-R Int : 000 ms QRS Dur : 082 ms QT Int : 400 ms P-R-T Axes : 000 071 050 degrees QTc Int : 440 ms Accelerated Junctional rhythm Abnormal ECG When compared with ECG of 16-JUL-2017 13:19, Previous ECG has undetermined rhythm, needs review Nonspecific T wave abnormality, improved in Inferior leads Confirmed by NASRA KOCH ([id number]) on 01/07/2018 12:15:07 PM Condition: No Change Discharge: [facility] Discharge Instructions Home Meds No Active Prescriptions or Reported Meds Diet: Regular Copies to: ADILENE NARAYANAN MD ; Venous Thromboembolism Antithrombotics Is Pt On Any Antithrombotics?: No MARU BANKS MD Jan 08, 2018 09:49
[2018-01-09] MEDS ORDERED: INFLUENZA VIRUS VAC 0.5ML SYR IM ONLY ONE (13:45)
[2018-01-11] MEDS ORDERED: THIAMINE HCL 100 MG TAB PO SCH (09:00)
== END 2018-01-08 08:20 | DRG 897 ==
LOC: ER 10:26 → MED 12:08
PROVIDERS: ADMIT Family Medicine; ATTEND Family Medicine
DX: F10.231 Alcohol dependence with withdrawal delirium (principal); F17.210 Nicotine dependence, cigarettes, uncomplicated; I45.6 Pre-excitation syndrome; Y90.0 Blood alcohol level of less than 20 mg/100 ml; R56.9 Unspecified convulsions
CPT/HCPCS: 70450; 71046; 71100; 80305; 80320; 80329; 81001; 82040; 82247; 82310; 82374; 82435; 82565; 82947; 83735; 84075; 84132; 84155; 84295; 84443; 84450; 84460; 84520; 85025; 93005; 96365; 96366; 96375; 96376; 99285; J2060; J3360; J3411; J3475; J7030

== ENCOUNTER 2018-01-08 08:27 | Inpatient (IN) | payer SELFPAY ==
[2018-01-07 15:03] VITALS: Ht 170.2 cm; Wt 69.9 kg
[~2018-01-08] VITALS: Ht 170.2 cm; Wt 69.9 kg
[2018-01-08] MEDS: MULTIVITAMINS PO SCH (09:00)
[2018-01-08] MEDS: FOLIC ACID 1 MG TAB PO SCH (09:00)
[2018-01-08] MEDS: THIAMINE HCL 100 MG TAB PO SCH (09:00)
[2018-01-08] MEDS ORDERED: chlorproMAZINE 25 MG TAB PO ONE ×3 (09:05→21:10)
[2018-01-08] MEDS ORDERED: DIAZEPAM 10 MG TAB PO ONE (09:05)
[2018-01-08] MEDS ORDERED: MAG HYD/AL HYD/SIMETH 30ML UDC PO PRN (09:15)
[2018-01-08 09:21] VITALS: BP 131/78
[2018-01-08] MEDS: DIVALPROEX SOD DR 500 MG TAB PO SCH ×3 (10:45→19:41)
--- NOTE | 2018-01-08 11:18 | EKG ---
[place] [facility] [place] NAME: LILI HARRINGTON : [id number] MR: [id number] V: [id number] EXAM DATE: ORDERING PHYSICIAN: ADILENE NARAYANAN TECHNOLOGIST: Test Reason : Blood Pressure : / mmHG Vent. Rate : 077 BPM Atrial Rate : 077 BPM P-R Int : 154 ms QRS Dur : 090 ms QT Int : 402 ms P-R-T Axes : 009 -01 026 degrees QTc Int : 454 ms Sinus rhythm with marked sinus arrhythmia Otherwise normal ECG When compared with ECG of 07-JAN-2018 11:49, Questionable change in QRS axis Confirmed by MARU BANKS ([id number]) on 01/08/2018 9:39:26 PM Referred By: Confirmed By:MARU BANKS
[2018-01-08] MEDS ORDERED: clonazePAM 0.5 MG ODT TABDP PO ONE (12:00)
[2018-01-08] MEDS ORDERED: clonazePAM 1 MG TAB PO ONE (12:00)
[2018-01-08] MEDS: DIAZEPAM 10 MG TAB PO PRN ×5 (12:21→23:22)
[2018-01-08 13:00] VITALS: BP 136/87
[2018-01-08 15:25] VITALS: BP 113/64
[2018-01-08 19:45] VITALS: BP 116/69
[2018-01-08] MEDS ORDERED: diphenhydrAMINE 25 MG CAP PO ONE (21:10)
[2018-01-08 23:15] VITALS: BP 126/78
[2018-01-09] MEDS: DIAZEPAM 10 MG TAB PO PRN ×5 (00:20→20:50)
[2018-01-09 05:15] VITALS: BP 116/85
[2018-01-09 07:48] VITALS: BP 122/82
--- NOTE | 2018-01-09 07:53 | EKG ---
FACILITY: [facility] - [place] PATIENT NAME: LILI HARRINGTON : [id number] MR: [id number] V: [id number] EXAM DATE: ORDERING PHYSICIAN: ADILENE NARAYANAN TECHNOLOGIST: RASHIDA Chiang Reason : ABN. EKG Blood Pressure : / mmHG Vent. Rate : 062 BPM Atrial Rate : 062 BPM P-R Int : 152 ms QRS Dur : 084 ms QT Int : 412 ms P-R-T Axes : -24 063 050 degrees QTc Int : 418 ms Sinus rhythm No acute appearing findings Confirmed by RANDI PALACIOS ([id number]) on 01/09/2018 3:51:32 PM Referred By: ORACIO Confirmed By:RANDI PALACIOS
[2018-01-09] MEDS: DIVALPROEX SOD DR 500 MG TAB PO SCH ×2 (08:24→20:50)
[2018-01-09] MEDS: THIAMINE HCL 100 MG TAB PO SCH (08:25)
[2018-01-09] MEDS: MULTIVITAMINS PO SCH (08:25)
[2018-01-09] MEDS: FOLIC ACID 1 MG TAB PO SCH (08:25)
[2018-01-09 08:39] LABS: PLATELET COUNT, AUTOMATED 324 K/uL (150-450)
[2018-01-09 12:20] VITALS: BP 122/82
--- NOTE | 2018-01-09 13:36 | SCHAAF H&P ---
DATE OF ADMISSION: January 08, 2018. ATTENDING PHYSICIAN Moshe Dykes MD The patient was seen on January 09, 2018 at approximately 09:00 hours for note concerning this dictation. PRESENTING PROBLEM, CHIEF COMPLAINT The patient on a police hold and having significant delirium from alcohol withdrawal. HISTORY OF PRESENT ILLNESS This is 22-year-old male who suffers from severe alcohol use disorder and significant complicated alcohol withdrawal as patient was noted to be on the unit from July 13, 2017 to July 19, 2017 and requiring significant treatment during alcohol detoxification then. The patient was noted to have been picked up for what is believed to be a DUI. The patient was brought to the nursing home center where the patient experienced alcohol withdrawal and seizures. The patient then returned to the emergency room and was placed on medical floor from January 07, 2018 to January 08, 2018. On the morning of January 08, 2018, the patient's seizures were under control. The patient in the state of delirium and mild agitation and patient agreed to transfer to Behavioral Health to complete treatment. The patient remains on a police hold at this time. The patient initially in significant delirium. This was treated with Depakote, Valium, Klonopin, and Thorazine. The patient then getting some sleep. The patient improved markedly and by time of interview on January 09, 2018, the patient overall communicating fairly well. Some elements of delirium and thought disturbance continued. However, the patient able to be left out in the general population. The patient indicating he wants to quit drinking, it is a problem for him. He is here with his girlfriend of 9 months who states he drinks considerable amounts at home. The patient denying any other other symptoms of psychiatric concern. MENTAL HEALTH HISTORY According to previous admission, the patient admits that when he was a child about age 5 he was found to be "out of control" and his mother tried to engage him in counseling but he did not cooperate. The patient denied having previous psychiatric treatments or hospitalizations prior to Jul, 2017 where he was treated here for alcohol withdrawal. FAMILY PSYCHIATRIC HISTORY Significant for patient's mother who is believed to have suffered from alcoholism. No other history is known. PAST MEDICAL HISTORY The patient reports overall good health other than currently related alcohol problems such as significant withdrawal seizures. 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 SOCIAL HISTORY The patient was born and raised in [place], [place] and lived primarily with his mother. He still is believed to have contact with her and feels she is now a support to him, but when he grew up he reported things were difficult. They lived in a one bedroom apartment. She had different men in the home. She was drinking alcohol heavily. The patient reports quitting school in the 7th grade, left his mother's home and lived with friends or on the street as an adolescent trying to support himself with odd jobs, but he was often homeless. The patient moved to [place] from [place] about a year and a half ago. The patient has a 2-year-old daughter. He is in a 9 month supportive relationship with a female now. 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 Currently living in [place] with his significant other. LEGAL HISTORY The patient reports multiple DUIs over the last years and now facing another one where he remains on a police hold for. SUBSTANCE ABUSE HISTORY Alcohol remains certainly his substance of choice. The patient uses some marijuana from time to time as well. PHYSICAL EXAMINATION Please see emergency room note and medical floor note. Notable for a 22-year-old male in postictal state upon arrival from [facility] in active alcohol withdrawal with delirium tremens. Vital signs upon arrival to the Behavioral Health Unit: Temperature 99.2, pulse 99, respiratory rate 16, blood pressure 131/78 and pulse oximetry 95% on room air. LABORATORY DATA On January 09, 2018 - CBC notable for hemoglobin and hematocrit low at 13.9 and 41.6, MCV elevated at 100.8, and MCH elevated at 33.7. Chemistry panel notable for potassium slightly elevated at 5.1. Upon arrival toxicology screen positive for cannabis, negative for any substances of abuse and nondetectable serum alcohol level. Urinalysis positive for glucose and protein, otherwise unremarkable. TSH 1.22 at the time of admission. MENTAL STATUS EXAMINATION GENERAL APPEARANCE, BEHAVIOR AND ATTITUDE: This is a fairly well groomed 22-year-old male making good eye contact today. Delirium tremens resolving. Cognition improving. Nontearful, interacting well with this provider, other treatment team staff and his girlfriend present. SPEECH: Nearing baseline, largely within normal limits. Regular rate, rhythm, volume and tone. MOOD: Described as okay. AFFECT: Full and bright at times and overall mood-congruent. THOUGHT PROCESSES: Logical and goal-directed, the patient now knowing where he was and oriented, no loose associations or flight of ideas. THOUGHT CONTENT: Free of auditory or visual hallucinations today, free of ideas of reference, thought broadcastings, delusions, obsessions or compulsions. Negative for any suicidal or homicidal ideations. SENSORIUM: Is clearing and minimally cloudy today. COGNITION: Alert and oriented to person, place, and mostly the time and situation. MEMORY: Immediate, recent and remote estimated intact. INTELLIGENCE: Average, based on interview and previous knowledge of this patient. INSIGHT AND JUDGMENT: Currently clouded due to recovering from delirium tremens associated with significant alcohol withdrawal but improving. ASSESSMENT This is a 22-year-old male who made marked improvement on our unit in the last 24 hours with significant alcohol withdrawal and delirium associated with such. Will continue to treat, medicate appropriately and will look to sending patient back to the nursing home facility where he remains on a police hold probably in the next 2 days. DIAGNOSES PER DSM-V 1. Alcohol withdrawal. 2. Delirium tremens. 3. Alcohol use disorder, severe. 4. Legal stressors. PLAN 1. Will admit to the unit. 2. Necessary precautions will be implemented. 3. The patient will participate in individual and group therapy. 4. Medications will be administered and titrated accordingly. 5. Collateral information to be obtained as necessary. 6. Estimated length of stay 3-4 days. MTDD
[2018-01-09] MEDS ORDERED: LOPERAMIDE HCL 2 MG CAP PO ONE (14:20)
[2018-01-09] MEDS ORDERED: LOPERAMIDE HCL 2 MG CAP PO PRN (14:20)
[2018-01-09 16:10] VITALS: BP 118/76
[2018-01-09 20:05] VITALS: BP 129/84
[2018-01-10 04:50] VITALS: BP 115/64
[2018-01-10] MEDS: DIVALPROEX SOD DR 500 MG TAB PO SCH (08:02)
[2018-01-10] MEDS: FOLIC ACID 1 MG TAB PO SCH (08:03)
[2018-01-10] MEDS: MULTIVITAMINS PO SCH (08:03)
[2018-01-10] MEDS: THIAMINE HCL 100 MG TAB PO SCH (08:03)
[2018-01-10 09:10] VITALS: BP 118/68
--- NOTE | 2018-01-10 09:22 | BHS Progress Note ---
[facility]HS - Subjective Progress Notes Subjective Patient doing well on the unit today, delirium appears mostly resolved today. Withdrawal near complete. Patient interacting well, and is in good spirits. Will stop depakote today, and plan for discharge back to [place] [facility] in AM tomorrow. Mood good, no other concerns. Suicidal Ideation: None Homicidal Ideation: None S - Objective Physical Exam Vital Signs Vital Signs Date Time Temp Pulse Resp B/P (MAP) Pulse Ox O2 Delivery O2 Flow Rate FiO2 01/10/18 04:50 98.9 56 14 115/64 (81) 97 Room Air Hematology Test 01/09/18 08:20 01/09/18 10:29 Red Blood Count 4.13 M/uL (4.00-5.60) Mean Corpuscular Volume 100.8 fL (80.0-96.0) Mean Corpuscular Hemoglobin 33.7 pg (26.0-33.0) Mean Corpuscular Hemoglobin Concent 33.4 g/dL (32.0-36.0) Red Cell Distribution Width 13.7 % (11.5-14.5) Mean Platelet Volume 7.7 fL (7.2-11.1) Neutrophils (%) (Auto) 67.8 % (39.4-72.5) Lymphocytes (%) (Auto) 19.4 % (17.6-49.6) Monocytes (%) (Auto) 10.5 % (4.1-12.4) Eosinophils (%) (Auto) 1.5 % (0.4-6.7) Basophils (%) (Auto) 0.8 % (0.3-1.4) Nucleated RBC Relative Count (auto) 0.0 /100WBC Neutrophils # (Auto) 4.2 K/uL (2.0-7.4) Lymphocytes # (Auto) 1.2 K/uL (1.3-3.6) Monocytes # (Auto) 0.6 K/uL (0.3-1.0) Eosinophils # (Auto) 0.1 K/uL (0.0-0.5) Basophils # (Auto) 0.1 K/uL (0.0-0.1) Nucleated RBC Absolute Count (auto) 0.00 K/uL Peripheral Blood Smear No Y/N Sodium Level 141 mmol/L (137-145) Potassium Level 5.1 mmol/L (3.5-5.0) Chloride Level 106 mmol/L (98-107) Carbon Dioxide Level 27 mmol/L (22-30) Blood Urea Nitrogen 10 mg/dl (9-21) Creatinine 1.00 mg/dl (0.66-1.25) Glomerular Filtration Rate Calc > 60.0 Random Glucose 106 mg/dl (75-110) Calcium Level 9.6 mg/dl (8.4-10.2) Magnesium Level 1.8 mg/dl (1.7-2.2) Total Bilirubin 0.6 mg/dl (0.2-1.3) Aspartate Amino Transf (AST/SGOT) 34 U/L (0-35) Alanine Aminotransferase (ALT/SGPT) 48 U/L (0-56) Alkaline Phosphatase 51 U/L (0-126) Total Protein 7.3 g/dl (6.3-8.2) Albumin 4.0 g/dl (3.5-5.0) Chemistry Test 01/09/18 08:20 01/09/18 10:29 White Blood Count 6.1 k/uL (4.5-11.0) Red Blood Count 4.13 M/uL (4.00-5.60) Hemoglobin 13.9 g/dL (14.0-18.0) Hematocrit 41.6 % (42.0-52.0) Mean Corpuscular Volume 100.8 fL (80.0-96.0) Mean Corpuscular Hemoglobin 33.7 pg (26.0-33.0) Mean Corpuscular Hemoglobin Concent 33.4 g/dL (32.0-36.0) Red Cell Distribution Width 13.7 % (11.5-14.5) Platelet Count 324 K/uL (150-450) Mean Platelet Volume 7.7 fL (7.2-11.1) Neutrophils (%) (Auto) 67.8 % (39.4-72.5) Lymphocytes (%) (Auto) 19.4 % (17.6-49.6) Monocytes (%) (Auto) 10.5 % (4.1-12.4) Eosinophils (%) (Auto) 1.5 % (0.4-6.7) Basophils (%) (Auto) 0.8 % (0.3-1.4) Nucleated RBC Relative Count (auto) 0.0 /100WBC Neutrophils # (Auto) 4.2 K/uL (2.0-7.4) Lymphocytes # (Auto) 1.2 K/uL (1.3-3.6) Monocytes # (Auto) 0.6 K/uL (0.3-1.0) Eosinophils # (Auto) 0.1 K/uL (0.0-0.5) Basophils # (Auto) 0.1 K/uL (0.0-0.1) Nucleated RBC Absolute Count (auto) 0.00 K/uL Peripheral Blood Smear No Y/N Glomerular Filtration Rate Calc > 60.0 Calcium Level 9.6 mg/dl (8.4-10.2) Magnesium Level 1.8 mg/dl (1.7-2.2) Total Bilirubin 0.6 mg/dl (0.2-1.3) Aspartate Amino Transf (AST/SGOT) 34 U/L (0-35) Alanine Aminotransferase (ALT/SGPT) 48 U/L (0-56) Alkaline Phosphatase 51 U/L (0-126) Total Protein 7.3 g/dl (6.3-8.2) Albumin 4.0 g/dl (3.5-5.0) Muscle Strength and Tone: WNL Gait and Station: Steady [facility] Medications Reviewed: Side Effects, Benefits of Medication, Risks Allergies Reviewed: Yes Mental Status Exam General Appearance: Casual, Well Groomed, Good Eye Contact, Cooperative, Polite, Good Interaction, Tearful (breifly while discussing ); No Psychomotor Agitation, No Psychomotor Retardation, No Bizarre Mannerisms, No Tics Speech: Clear, Spontaneous, Normal Rate, Normal Rhythm, Normal Volume, Normal Tone; No Garbled, No Rambling, No Inappropriate Mood: Euthymic (good spirits) Affect: Full and Appropriate, Calm; No Withdrawn, No Tearful, No Anxious, No Agitated Thought Process: Organized, Logical, Goal Directed; No Loose Associations, No Flight of Ideas Thought Content: No Suicidal Ideation, No Homicidal Ideation, No Delusions, No Auditory Halllucinations, No Visual Hallucinations, No Thought Broadcasting, No Ideas of Reference, No Obsessions, No Compulsions Sensorium: Clear Cognition: Alert & Oriented-Person, Alert & Oriented-Place, Alert & Oriented- Time, Axvxm-Xjbpjhzm-Wdkmmlaau Memory: Immediate, Recent, Remote Intelligence: Average Insight Judgment: Fair (improved in absence of alcohol. ) Result Diagram: 01/09/18 0820 01/09/18 1029 [facility] Assessment and Plan [id number] Encounter Date: Jan 10, 2018 [id number] Encounter Time: 09:00 [facility] Plan: Necessary Precautions, Individual/Group Therapy, Admin/Titrate Meds, Educate Patient Tobacco Medications: Not Appropriate Condition Multpiple Antipsychotics Used: No Problems: (1) Alcohol dependence in controlled environment Status: Chronic (2) Alcohol withdrawal delirium, acute, hyperactive Optional Permanent Comment: nearly resolved Last Edited By: Adilene Narayanan on Jan 10, 2018 09:20 Status: Acute Condition 1. continue treatment. 2. prepare for discharge tomorrow to custody of police. 3. stop depakote. ADILENE NARAYANAN MD Jan 10, 2018 09:22
[2018-01-10 13:05] VITALS: BP 112/72
[2018-01-10] MEDS ORDERED: DIAZEPAM 10 MG TAB PO ONE (21:00)
[2018-01-11 06:00] VITALS: BP 125/82
[2018-01-11] MEDS: MULTIVITAMINS PO SCH (08:06)
[2018-01-11] MEDS: FOLIC ACID 1 MG TAB PO SCH (08:06)
[2018-01-11] MEDS: THIAMINE HCL 100 MG TAB PO SCH (08:06)
[2018-01-11] MEDS ORDERED: FOLI-68 PO (08:32)
[2018-01-11] MEDS ORDERED: MULT-1379 PO (08:32)
[2018-01-11] MEDS ORDERED: THIA100T2 PO (08:33)
[2018-01-11 11:47] VITALS: BP 122/86
--- NOTE | 2018-01-13 23:28 | SCHAAF DISCHARGE ---
DATE OF ADMISSION: January 08, 2018 DATE OF DISCHARGE: January 11, 2018 ATTENDING PHYSICIAN Moshe Dykes MD Patient was seen approximately 0800 hours on 11 January 2018 for note concerning this dictation. FINAL DIAGNOSES 1. Alcohol use disorder, severe. 2. Alcohol withdrawal and delirium tremens, now considered complete. 3. Patient having ongoing legal stressors associated with alcoholism. 4. Supportive relationship with significant other. REASON FOR ADMISSION This is a 22-year-old male who had been on the Behavioral Health Unit in July 2017 secondary to alcohol withdrawal as well. At this time, patient experienced significant withdrawal. Patient was noted to be placed in correction for alcohol- related offense where he quickly in the absence of alcohol had witnessed seizures. Patient then brought to the medical floor where he stayed from January 07 to January 08. On the morning of January 08, patient noted to have significant behavior disturbance associated with delirium tremens. Multiple CODE YELLOWS were being called on the medical floor. Patient was brought over to Behavioral Health to complete detox. Upon arrival on Behavioral Health, patient noted to be in withdrawal with delirium tremens, requiring Depakote, Thorazine, and ongoing use of high-dose benzodiazepines to get under control. Alcohol withdrawal then was considered complete by January 11, 2018, and patient was calm, polite, very cooperative, and pleasant, denying any other psychiatric symptoms. He was discharged to the custody of police. PHYSICAL EXAMINATION Please see ER notes and medical floor notes. GENERAL: A 22-year-old male in overall good physical health. However, patient experiencing significant delirium tremens and in a postictal state. VITAL SIGNS: Vital signs at the time of departure from Behavioral Health Unit in the custody of police indicated a temperature of 99.0, pulse 105, respiratory rate 15, blood pressure 122/86, and pulse oximetry 97% on room air. LABORATORY Data n 01/09/2018 indicated a CBC that showed MCV and MCH elevated at 100.8 and 33.7 respectively, hemoglobin and hematocrit slightly low at 13.9 and 41.6. Chemistry panel was unremarkable on 01/09/2018. Toxicology screen positive for cannabis on arrival to the hospital with an undetectable serum alcohol level. Urinalysis showed urine glucose present. TSH was 1.22. MENTAL STATUS EXAMINATION AT TIME OF DISCHARGE INTO CUSTODY OF LAW ENFORCEMENT GENERAL APPEARANCE, BEHAVIOR, AND ATTITUDE: Well-groomed, 22-year-old male with thin body habitus. Patient interacting well with this provider and other treatment team staff. No psychomotor agitation or retardation. Making good eye contact. Not tearful. No bizarre mannerisms or tics. SPEECH: Within normal limits. Regular rate, rhythm, volume, and tone. MOOD: Described as good. AFFECT: Full and mood congruent. THOUGHT PROCESSES: Logical, goal directed. No loose associations or flight of ideas. THOUGHT CONTENT: Free of auditory or visual hallucinations, ideas of reference, thought broadcastings, delusions, obsessions, compulsions. The patient adamantly denying suicidal or homicidal ideation. SENSORIUM: Clear. COGNITION: Alert and oriented to person, place, time, and situation. MEMORY: Immediate, recent, and remote was estimated intact. INTELLIGENCE: Average based on interview and previous knowledge of this patient. INSIGHT AND JUDGMENT: Considered grossly intact in the absence of alcohol and cannabis use. However, patient has severe alcohol use disorder and would benefit greatly from entering residential rehab at this time. RESULTS OF TESTING Imaging: None. Laboratory data: See above. CONSULTATIONS None. TREATMENT Patient received medications, individual and group therapy. Medications were aimed at completing alcohol withdrawal and breaking delirium tremens. HOSPITAL COURSE Patient initially very ill with delirium tremens and significant alcohol withdrawal upon arrival to the Behavioral Health Floor. This gradually cleared, and patient's withdrawal and delirium tremens were considered resolved at time of discharge into police custody. CONDITION OF PATIENT ON DISCHARGE Stable. Considered minimal risk to himself or others in the absence of alcohol or illicit substances. DISPOSITION Patient discharged to the custody of law enforcement. He would follow up with court recommendations concerning any offenses that may have occurred. It is recommended the patient enter residential rehab at this time for extreme alcohol use disorder. Crisis line was given should symptoms return. Patient would initially follow up in correction setting. DISCHARGE MEDICATIONS At time of discharge, patient was on: 1. Folic acid 1 mg daily. 2. Multivitamin with minerals daily. 3. Thiamine 100 mg daily. Risks versus benefits of above discharge plan were discussed. Informed consent was given to proceed with the above discharge plan by this competent patient, patient's girlfriend, as well as law enforcement staff. [facility]ENTER[facility]athe[facility]
== END 2018-01-11 15:20 | DRG 897 ==
LOC: BHS 08:27
PROVIDERS: ADMIT Psychiatry & Neurology Psychiatry; ATTEND Psychiatry & Neurology Psychiatry
DX: F10.231 Alcohol dependence with withdrawal delirium (principal); R56.9 Unspecified convulsions; Z81.1 Family history of alcohol abuse and dependence; Z62.812 Personal history of neglect in childhood; Y90.0 Blood alcohol level of less than 20 mg/100 ml
CPT/HCPCS: 36415; 82040; 82247; 82310; 82374; 82435; 82565; 82947; 83735; 84075; 84132; 84155; 84295; 84450; 84460; 84520; 85025; 93005; Q0161; Q0163